=== PATIENT | female | born 2000 | race Caucasian/White ===

== ENCOUNTER 2022-07-08 17:37 | Outpatient (REF) | payer BC, SELFPAY ==
[2022-07-08 16:34] LABS: *AMPHETAMINES SCREEN URINE Negative (Negative); *BARBITURATES SCREEN URINE Negative (Negative); *BENZODIAZEPINES SCREEN URINE Negative (Negative); Cannabinoids THC Negative (Negative); Cocaine Screen,Urine Negative (Negative); METHADONE URINE SCREEN Negative (Negative); OPIATES URINE SCREEN Negative (Negative)
[2022-07-08 16:36] LABS: Tricyclic Antidepressants Negative (Negative)
[2022-07-18 16:20] LABS: Buprenorphine Negative ng/mL (Cutoff: 5.0); Norbuprenorphine Negative ng/mL (Cutoff: 2.5)
== END 2022-07-08 17:38 | disposition home or self-care (01) ==
LOC: LBN 17:37
PROVIDERS: Visit Provider Obstetrics & Gynecology
DX: Z34.93 Encounter for supervision of normal pregnancy, unspecified, third trimester (principal); Z3A.34 34 weeks gestation of pregnancy
CPT/HCPCS: 80307; 80348

== ENCOUNTER 2022-07-13 03:19 | Outpatient (CLI) | payer BC, SELFPAY ==
[2022-07-13 12:35] LABS: Abs Immature Grans 0.89 10^3/uL (0.0-0.06); Absolute Eosinophil Count 0.18 10^3/uL (0.0-0.7); Absolute Lymphocyte Count 2.44 10^3/uL (1.2-3.4); Absolute Monocyte Count 1.32 10^3/uL (0.1-0.8); Basophils % 0.5; Eosinophils % 0.9; HGB 8.4 g/dL (11.2-15.7); Immature Grans % 4.4; Lymphocytes % 12.2; MCH 24.8 pg (27.0-33.0); MCHC 31.1 % (32.0-36.0); MCV 80 fL (80-95); MPV 9.4 fL (8.0-11.0); Monocytes % 6.6; Neutrophils % 75.4; Nucleated RBC 0.3 % (0.0-0.3); Platelet Count 333 10^3/uL (130-400); RBC 3.39 10^6/uL (3.93-5.22); RDW 14.5 % (11.7-14.6); RDW-SD 41.7 fL; WBC 20.02 10^3/uL (4.4-10.8)
[2022-07-13 12:52] LABS: Diff Comment Diff Reviewed; RBC Morphology Normal
[2022-07-13 13:14] LABS: Glucose,1 Hr (Glucola) 142 mg/dL (80-140)
[2022-07-14 10:07] LABS: Hepatitis B Surface Ag Negative (Negative)
[2022-07-14 10:42] LABS: Hepatitis C Ab w Rflx HCV PCR Negative (Negative)
[2022-07-14 10:51] LABS: HIV-1/2 Ag & Ab Screen Negative (Negative)
[2022-07-14 10:54] LABS: Rubella IgG Ab (UVM) Equivocal (See Note)
[2022-07-15 13:18] LABS: Syphilis IgG w/Reflex Nonreactive (Nonreactive)
== END 2022-07-13 03:20 | disposition home or self-care (01) ==
LOC: LBO 03:19
PROVIDERS: Advanced Practice Midwife; Visit Provider Obstetrics & Gynecology
DX: Z34.91 Encounter for supervision of normal pregnancy, unspecified, first trimester
CPT/HCPCS: 36415; 82950; 86803; 86850; 86900; 86901; 87340; 87389; 85025; 86762; 86780; 86787

== ENCOUNTER 2022-07-17 01:35 | Outpatient (CLI) | payer BC, SELFPAY ==
--- OUTSIDE RECORDS SUMMARY | 2022-07-17 01:24 | XMS_ITS ---
:2000 Author Organization [facility] Address [address] [place] [address] Care Team Providers Name Role Phone Neelam Polo Unavailable Unavailable PROBLEMS Type Condition ICD9-CM Code MSE23-CO Code Onset Condition SNO MED Code Dates Status Problem Depression F32.9 Aug, Active 914298180 2019 Problem Asthma, exercise J45.990 Active 313 28368 induced Problem control Z30.9 Active [id number] 04 ALLERGIES Substance Reaction Event Type Date Status Amoxicillin rash Drug Allergy Jun, Active ENCOUNTERS Encounter Location Date Diagnosis [facility] [address] [facility] Jun, Bir th control Z30.9 [place] [address] Depression F 32.9 [facility] Feb, [place] [address] [facility] Oct, [place] [address] ADMINISTRATION [facility] Oct, [place] [address] [facility] [address] [facility] Sep, [place] [address] [facility] Sep, [place], [place] [address] J45.990 and Depression F32.9 [facility] Aug, [place] [address] Z00.00 ; Enc ounter for drug screening Z 02.83 ; Alcohol screenin g Z13.89 ; control Z30.9 ; Depression F32.9 and Acid reflux K21.9 [facility] [address] [facility] Jul, [place] [address] vaccination Z23 and Pre-employment examination Z02. 1 LPO-SPECIALTY TEAM [facility] November, [place] [address] xxADMIT,COMMUNICATIONS [facility] November, [place] [address] zzLPO-PRIM and PSYCH [facility] November, [place] [address] episode of m ajor depressive disor barbara F32.0 LPO-SPECIALTY TEAM [facility] Oct, [place] [address] zzLPO-PRIM and PSYCH [facility] Oct, [place] [address] episode of m ajor depressive disor barbara F32.0 zzLPO-PRIM and PSYCH [facility] Oct, [place] [address] F43.21 [facility] [address] [place] [address] Apr, [place] [address] zzLPO-PRIM and PSYCH [facility] Apr, [place] [address] zzLPO-PRIM and PSYCH [facility] Mar, Acid refl ux K21.9 ; [place] [address] Fatigue R53. 83 and Stress F43.9 zzLPO-PRIM and PSYCH [facility] Jan, [place] [address] health check Z00.129 ; Encounter for dr ug screening Z02.83 ; Encounter for immunization Z23 and Alcohol screenin g Z13.89 [facility] [address] [place] [address] Dec, [place] [address] [facility] [address] [place] [address] Jul, [place] [address] [facility] [address] [place] [address] Sep, [place] [address] [facility] [address] [place] [address] Sep, Enlarged ly mph node 785.6 [place] [address] and FATIGUE 780.79 [facility] [address] [place] [address] Sep, Enlar ged lymph node 785.6 [place] [address] and FATIGUE 7 80.79 [facility] [address] [place] [address] Apr, Well baby/ [place] [address] V20.2 ; VACCI N FOR INFLUENZA V04.81 and HPV-NOT GIVEN-CA REGIVER REFUSES V64.05 [facility] [address] [place] [address] Apr, [place] [address] [place] [address] Mar, [place] [address] [place] [address] November, [place] [address] CASE MANAGEMENT [facility] Aug, [place] [address] [facility] Apr, Well baby/ [place] [address] V20.2 and MEN INGOCOCCAL VACCINE V03.89 [facility] 11 May, 2010 VACCIN FOR INFLUENZA OFFICE 1 [place] V04.81 [address] [facility] Mar, [place] [address] [facility] Mar, EXERC [place] [address] 493.81 CASE MANAGEMENT [facility] Feb, [place] [address] [facility] 18 Aug, 2009 Cough 786.2 OFFICE 1 [place] [address] [facility] 15 Dec, 2008 Acute URI [upper OFFICE 1 [place] [address] multiple sites 4 65.8 [facility] November, Pneumo wendy NOS 486 OFFICE 1 [place] [address] ADMINISTRATION [facility] Sep, [place] [address] [facility] 17 Sep, 2008 Well b adarsh/ child exam OFFICE 1 [place] V20.2 ; [facility] [place] [facility] [address] V06.1 and Abdomi nal pain, generalized 789. 07 [facility] Jul, [place] [address] [facility] Jul, [place] [address] [facility] [address] [place] [address] Jul, Abdom inal pain, [place] [address] generalized 7 89.07 [facility] Jun, Acu te URI [[place] [address] respiratory infection] of multiple sites 4 65.8 [facility] [address] [facility] Jun, [place] [address] [facility] May, [place] [address] [facility] [address] [facility] Dec, [place] [address] [facility] [address] [facility] November, Pha ryngitis NOS [address] [place] [address] [facility] [address] [facility] November, [place] [address] UNKNOWN November, [facility] [address] [facility] Aug, [place] [address] UNKNOWN 08 Aug, 2006 [facility] [address] 18 Jun, 2006 [place] [address] V04.81 and V ARICELLA VACCINATION V05. 4 UNKNOWN May, [facility] [address] 07 May, [address] INFECTION 112.1 and [place] [address] PREOP EXAM U [facility] V72.84 [facility] [address] 05 Apr, 2006 Enu resis 307.6 ; [place] [address] DERMATITIS 6 92.9 ; Upper respiratory infe ction NOS 465.9 and Mollus cum contagiosum 078. 0 [facility] [address] 16 Feb, 2006 [place] [address] UNKNOWN Feb, [facility] [address] 21 Jan, 2006 [place] [address] [facility] [address] 29 Dec, 2005 [place] [address] 078.0 ORTHOPEDIC OFFICE [address] 23 Dec, 2005 [place] [address] [facility] [address] 21 Dec, 2005 [place] [address] [facility] [address] 16 Dec, 2005 [place] [address] [facility] [address] 08 Dec, 2005 [place] [address] ORTHOPEDIC OFFICE [address] 02 Dec, 2005 [place] [address] [facility] [address] 30 Nov, 2005 [place] [address] [facility] [address] 14 Oct, 2005 [place] [address] [facility] [address] 27 Sep, 2005 [place] [address] [facility] [address] 27 Sep, 2005 [place] [address] [facility] [address] 15 Sep, 2003 [place] [address] [facility] [address] 16 Dec, 2002 [place] [address] IMMUNIZATIONS Vaccine Route Administration Date Status polio HISTORY Unknown 1998 Administered polio HISTORY Unknown January 21, 1999 Administered polio HISTORY Unknown November 25, 1999 Administered polio HISTORY Unknown December 18, 2002 Administered DTaP,HISTORY Unknown January 21, 1999 Administered DTaP,HISTORY Unknown May 19, 1999 Administered DTaP,HISTORY Unknown Apr 19, 2000 Administered DTaP,HISTORY Unknown December 18, 2002 Administered -Influenza split STATE preser Unknown May 09, 2009 Ad ministered free>35mos (46010) Hep B HISTORY adolescent or Unknown 1998 Admi nistered pediatric Hep B HISTORY adolescent or Unknown 1998 Admi nistered pediatric Influenza HISTORY Unknown Mar 26, 2011 Administered Hep B HISTORY adolescent or Unknown May 22, 1999 Admi nistered pediatric Tdap STATE Boostrix 7yrs or older Unknown September 18, 2008 Administered of age [address] Varicella STATE Unknown Jun 21, 2006 Administered [place] includes admin [id number] ID Intradermal Jul 11, 2018 Adm inistered Meningococcal STATE(Menactra) 43382 IM Intramuscular Apr 28 1 Administered zzInfluenza FLUMIST QUAD STATE 2yr NS Nasal May 02, 2014 Administered thru 18yrs -N.CL,NonState Unknown Jun 21, 2006 Administered Intranasal,>18yrs,single vaccine(94966) Hib HISTORY Unknown 1998 Administered Hib HISTORY Unknown January 21, 1999 Administered Hib HISTORY Unknown May 22, 1999 Administered Hib HISTORY Unknown Apr 19, 2000 Administered Chickenpox had disease Unknown November 29, 2000 Administe red -Influenza Flulaval NON-STATE w IM Intramuscular May 15, 2010 Administered preservative Meningococcal STATE(Menveo) IM Intramuscular January 13, 2016 Adm inistered MMR HISTORY Unknown November 25, 1999 Administered MMR HISTORY Unknown December 18, 2002 Administered DTaP,HISTORY Unknown 1998 Administered SOCIAL HISTORY Qualifiers Date Current Smoker 07/11/2018 REASON FOR REFERRAL FUNCTIONAL STATUS PLAN OF CARE Activity Details Follow Up 4 Weeks Reason:deprssion Future Test UA-Urine ,IN OFFICE [id number] VITAL SIGNS Height 60.25 in 2019-06-15 Height 60.25 in 2018-09-13 Height 60.25 in 2018-08-05 Height 59 in 2018-07-11 Height 59 in 2016-03-26 Height 59 in 2016-01-13 Height 59 in 2014-09-18 Height 59 in 2014-05-02 Height 59 in 2011-04-28 Height 57.25 in 2010-03-12 Height 55 in 2009-08-22 Height 53.25 in 2008-09-18 Height N/A in 2005-09-28 Height N/A in 2003-09-17 Height N/A in 2002-12-18 Weight 98.6 lbs 2019-06-15 Weight 99.2 lbs 2018-09-13 Weight 97.6 lbs 2018-08-05 Weight 84.5 lbs 2018-07-11 Weight 91.2 lbs 2016-03-26 Weight 96.4 lbs 2016-01-13 Weight 94.2 lbs 2014-09-18 Weight 92.0 lbs 2014-05-02 Weight 86 lbs 2011-04-28 Weight 78 lbs 2010-03-12 Weight 74.4 lbs 2009-08-22 Weight 63 lbs 2008-12-17 Weight 60 lbs 2008-11-20 Weight 61 lbs 2008-09-18 Weight 61 lbs 2008-07-25 Weight N/A lbs 2008-06-19 Weight N/A lbs 2007-12-02 Weight N/A lbs 2006-05-11 Weight N/A lbs 2006-04-08 Weight N/A lbs 2005-12-31 Weight N/A lbs 2005-09-28 Weight N/A lbs 2003-09-17 Weight N/A lbs 2002-12-18 BMI 19.09 kg/m2 2019-06-15 BMI 19.21 kg/m2 2018-09-13 BMI 18.90 kg/m2 2018-08-05 BMI 17.07 kg/m2 2018-07-11 BMI 18.42 kg/m2 2016-03-26 BMI 19.47 kg/m2 2016-01-13 BMI 19.02 kg/m2 2014-09-18 BMI 18.58 kg/m2 2014-05-02 BMI 17.37 kg/m2 2011-04-28 BMI 16.73 kg/m2 2010-03-12 BMI 17.29 kg/m2 2009-08-22 BMI 15.12 kg/m2 2008-09-18 BMI N/A kg/m2 2005-09-28 BMI N/A kg/m2 2003-09-17 BMI N/A kg/m2 2002-12-18 Temperature 98.3 degrees Fahrenheit 2019-06-15 Temperature 98.6 degrees Fahrenheit 2018-09-13 Temperature 98.5 degrees Fahrenheit 2018-08-05 Temperature 98.8 degrees Fahrenheit 2018-07-11 Temperature 98.5 degrees Fahrenheit 2016-03-26 Temperature 97.4 degrees Fahrenheit 2016-01-13 Temperature 99.3 degrees Fahrenheit 2014-09-18 Temperature 99.4 degrees Fahrenheit 2014-05-02 Temperature TYMPANIC:98.6 degrees Fahrenheit 2011-04 Temperature 98.9 degrees Fahrenheit 2010-03-12 Temperature 95.3 degrees Fahrenheit 2009-08-22 Temperature 97.3 degrees Fahrenheit 2008-12-17 Temperature 96.8 degrees Fahrenheit 2008-11-20 Temperature 97.6 degrees Fahrenheit 2008-09-18 Temperature 96.8 degrees Fahrenheit 2008-07-25 Temperature N/A degrees Fahrenheit 2008-06-19 Temperature N/A degrees Fahrenheit 2007-12-02 Temperature N/A degrees Fahrenheit 2006-06-21 Temperature N/A degrees Fahrenheit 2006-05-11 Temperature N/A degrees Fahrenheit 2006-04-08 Temperature N/A degrees Fahrenheit 2005-12-31 Heart Rate 100 /min 2019-06-15 Heart Rate 84 /min 2018-09-13 Heart Rate 89 /min 2018-08-05 Heart Rate 112 /min 2018-07-11 Heart Rate 98 /min 2016-03-26 Heart Rate 109 /min 2016-01-13 Heart Rate 88 /min 2014-09-18 Heart Rate 118 /min 2014-05-02 Heart Rate 115 /min 2011-04-28 Heart Rate 100 /min 2010-03-12 Heart Rate 117 /min 2009-08-22 Heart Rate 99 /min 2008-12-17 Heart Rate 102 /min 2008-11-20 Heart Rate 108 /min 2008-09-18 Heart Rate 102 /min 2008-07-25 Heart Rate N/A /min 2008-06-19 Heart Rate N/A /min 2007-12-02 Heart Rate N/A /min 2006-05-11 Heart Rate N/A /min 2006-04-08 Heart Rate N/A /min 2005-12-31 Respiratory Rate 16 /min 2019-06-15 Respiratory Rate 18 /min 2018-09-13 Respiratory Rate 18 /min 2018-08-05 Respiratory Rate 18 /min 2018-07-11 Respiratory Rate 16 /min 2016-03-26 Respiratory Rate 18 /min 2016-01-13 Respiratory Rate 16 /min 2014-09-18 Respiratory Rate 16 /min 2014-05-02 Respiratory Rate 16 /min 2011-04-28 Respiratory Rate 20 /min 2010-03-12 Respiratory Rate 18 /min 2009-08-22 Respiratory Rate 20 /min 2008-12-17 Respiratory Rate 20 /min 2008-11-20 Respiratory Rate 20 /min 2008-07-25 Respiratory Rate N/A /min 2006-05-11 Oximetry 100 % 2019-06-15 Oximetry 99 % 2018-09-13 Oximetry 98 % 2018-08-05 Oximetry 98 % 2018-07-11 Oximetry 98 % 2016-03-26 Oximetry 100 % 2016-01-13 Oximetry 100 % 2014-09-18 Oximetry 98 % 2014-05-02 Oximetry 99 % 2011-04-28 Oximetry 98% % 2010-03-12 Oximetry 99 % 2009-08-22 Oximetry 98% % 2008-12-17 Oximetry 95 % % 2008-11-20 Oximetry 98 % 2008-09-18 Oximetry 100% % 2008-07-25 Blood pressure systolic 110 mm Hg 2019-06-15 Blood pressure diastolic 73 mm Hg 2019-06-15 MEDICATIONS Medication Instructions Dosage Frequency Start End Duration Statu s Date Date ProAir HFA 108 Inhalation every 2 puffs as 6h Sep, da ys Active (90 Base) 6 hrs needed 2018 MCG/ACT Norgestimate-E Orally once a 1 tablet 24h 90 days Ac tive th Estradiol day 0.25-35 MG-MCG FLUoxetine HCl Orally Once a 1 capsule 24h Jun, day(s) Active 10 MG day 2018 Lexapro 5 MG Orally Once a 1 tablet 24h Sep, day(s) No t-Takin day 2018 g 24h Active PROCEDURES Procedure Date Ordered Result Body Site N.,[facility] inj.fee,add.inj.(20230) Jun 21, 2006 No HTN DX,BP <120/80 (87483) Aug 05, 2018 -zzSTATE,inj.fee,(Single or combination) September 18, 2008 N.CL,INJ.FEE.MEDICARE-INFLUENZA(09621) May 15, 2010 No HTN DX,BP <120/80 (38083) Mar 26, 2016 Varicella STATE Jun 21, 2006 N.,STATE inj.fee,(Single or Combination)(41387) Apr 28, 2011 Med Rec done (39129) Aug 05, 2018 N.,STATE inj.fee,(Single or Combination)(11787) January 13, 2016 Med Rec done (82939) Jun 15, 2019 SBIRT screen w intervention (53536) January 13, 2016 SBIRT SCREEN negative January 13, 2016 BMI normal (64080) January 13, 2016 EVAL,PSYCH DIAGNOSTIC October 12, 2016 BMI normal (36535) September 13, 2018 Tob non-user (70630) January 13, 2016 Med Rec done (86553) September 13, 2018 -N.CL,NonState Intranasal,>18yrs,single Jun 21, 2006 vaccine(62416) Tdap STATE Boostrix 7yrs or older of age [address] September 18, 2008 MENINGOCOCCAL VACCINE, IM January 13, 2016 -Influenza Flulaval NON-STATE w preservative May 15, 2010 SBIRT screening 2016-01-13 negative SBIRT screening 2018-08-05 Negative N.CL,STATE inj.fee,(Single or Combination)(01887) Jun 21, 2006 No HTN DX,BP <120/80 (02926) January 13, 2016 Dep screen neg (51594) January 13, 2016 Med Rec done (75259) January 13, 2016 No HTN DX,BP <120/80 (10408) Jun 15, 2019 SBIRT SCREEN negative Aug 05, 2018 zzInfluenza FLUMIST QUAD STATE 2yr thru 18yrs May 02, 2014 Tob user, counseled (89845) Aug 05, 2018 Meningococcal STATE(Menactra) 66872 Apr 28, 2011 Tob non-user (29724) Mar 26, 2016 PSYTX PT&/FAMILY 30 MINUTES (74909) November 06, 2016 Dep screen neg (28426) Mar 26, 2016 [place] includes admin 78208 Jul 11, 2018 Med Rec done (13761) Mar 26, 2016 BMI normal (82893) Jun 15, 2019 N.CL,STATE inj.fee,(Single or Combination)(13461) May 02, 2014 BMI normal (67731) Mar 26, 2016 UA- TEST (g code 19926) Jun 15, 2019 RESULTS Name Result Date Reference Range UA-Urine ,IN OFFICE 2019-06-15 RESULT Neg UA-Urine ,IN OFFICE 2018-08-05 RESULT Neg X Abdomen 1 V 2017-08-12 See Below For Report LIPASE 2017-08-12 LIP [phone] UA-Urine ,AT HOSPITAL 2017-08-12 HCG-U NEGATIVE NEGATIVE COMPMET 2017-08-12 GLUC 94 74-103 BUN 21 7-18 CREATS 0.86 0.55-1.30 EGFR >60 >=60 NA 140 136-145 K+ 4.0 3.7-5.0 CL 103 99-109 CO2 26 22-32 CA 8.8 8.5-10.1 TP 7.3 6.3-8.6 ALB 4.1 3.7-5.6 TBIL 0.3 0.0-1.0 DBIL 0.1 0.0-0.1 ALKP 98 46-116 AST 31 15-37 ALT 43 13-78 CBC WITH AUTO DIFF 2017-08-12 WBC 7.3 4.0-12.0 RBC 4.5 4.5-6.0 HGB 12.8 12.5-16.0 HCT 39.4 37.0-47.0 MCV 87 78-100 MCH 28.3 27.0-32.0 MCHC 32.5 32.0-36.0 RDW 13.1 11.0-14.0 PLT 222 140-440 MPV 10.7 7.4-11.0 ANC# 4.1 1.4-7.9 IG# 0.0 0.0-0.1 LY# 2.0 1.5-4.0 MO# 0.9 0.2-0.8 EO# 0.3 0.0-0.7 BA# 0.1 0.0-0.2 NE% 55.6 IG% 0.1 0.0-1.0 LY% 26.7 MO% 12.4 EO% 4.6 BA% 0.7 UA-DIP W/REFLEX 2017-08-12 COL Yellow YELLOW CLARITY Clear CLEAR SG 1.020 1.001-1.035 GLU. Negative NEGATIVE GUIDO Negative NEGATIVE KET Negative NEGATIVE BLD Negative NEGATIVE PH 7.5 5.0-8.0 PROT Negative NEGATIVE NIT Negative NEGATIVE BROCK Negative NEGATIVE MONOSPOT 2014-09-18 MONOSPOT NEGATIVE NEGATIVE CBC WITH AUTO DIFF 2014-09-18 WBC 9.9 4.5-15.5 RBC 4.4 3.5-6.0 HGB 12.8 11.5-15.5 HCT 38.2 35.0-45.0 MCV 87 77-100 MCH 29.2 25.0-35.0 MCHC 33.5 31.0-37.0 RDW 12.3 11.0-14.0 PLT 278 150-450 MPV 11.1 7.4-11.0 NE% 69.8 42.2-75.2 LY% 22.6 20.5-51.0 MO% 6.6 1.7-9.3 EO% 0.7 0.0-6.0 BA% 0.3 0.0-1.0 ANC 6.9 1.4-7.9 EKG-NON WEEKS 2012-08-08 UA-COLONY COUNT ONLY COLONY COUNT To Micro ANTIBIOTIC: Day1 Day 2 Isolate1 SOURCE: UA-COLONY COUNT ONLY UA DIPSTICK ONLY-DIAGNOSTIC Color yellow Clarity Specific Burt >1.030 Glucose. neg Bilirubin neg Ketones tr Blood neg PH 7.0 Protein tr Urobilinogen 0.2 Nitrite neg Leukocytes tr RAPID STREP SCREEN,IN OFFICE (2 Swab System) Result To Micro RAPID STREP SCREEN,IN OFFICE (2 Swab System) Result To Micro UA-DIP W/REFLEX SOURCE BILIRUBIN NEG BLOOD NEG CLARITY CLEAR COLOR YELLOW GLUCOSE NEG KETONES NEG LEUKOCYTES NEG NITRITES NEG PH 9.0 PROTEIN TRACE SPECIFIC GRAVITY 1.015 UROBILINOGEN 0.2 UROBILINOGEN UA-COLONY COUNT ONLY COLONY COUNT To Micro ANTIBIOTIC: Day1 Day 2 Isolate1 SOURCE: UA-DIP W/REFLEX SOURCE BILIRUBIN NEG BLOOD NEG CLARITY Clear COLOR Yellow GLUCOSE NEG KETONES NEG LEUKOCYTES NEG NITRITES NEG PH 7.0 PROTEIN NEG SPECIFIC GRAVITY 1.025 UROBILINOGEN 0.2 UROBILINOGEN UA-DIP W/REFLEX SOURCE BILIRUBIN NEG BLOOD NEG CLARITY Clear COLOR Yellow GLUCOSE NEG KETONES NEG LEUKOCYTES NEG NITRITES NEG PH 8.5 PROTEIN 30 SPECIFIC GRAVITY 1.015 UROBILINOGEN 0.2 UROBILINOGEN UA-DIP W/REFLEX SOURCE BILIRUBIN NEG BLOOD NEG CLARITY Clear COLOR Yellow GLUCOSE NEG KETONES NEG LEUKOCYTES NEG NITRITES NEG PH 8.0 PROTEIN NEG SPECIFIC GRAVITY 1.015 UROBILINOGEN 0.2 UROBILINOGEN UA-COLONY COUNT ONLY COLONY COUNT To Micro ANTIBIOTIC: Day1 Day 2 Isolate1 SOURCE: UA-DIP W/REFLEX SOURCE BILIRUBIN NEG BLOOD NEG CLARITY Clear COLOR Yellow GLUCOSE NEG KETONES NEG LEUKOCYTES NEG NITRITES NEG PH 6.5 PROTEIN NEG SPECIFIC GRAVITY 1.025 UROBILINOGEN 0.2 UROBILINOGEN PT/INR PT 11.3 INR PT-INR 0.95 PT-INR Interp Goal INR range GOAL INR RANGE TABLET SIZE AVG.QD DOSE NEW AVG.QD DOSE NEXT INR DUE REASON FOR VISIT CPE, CPE roomer template, , Pap smear? Pt has never had one before, discuss BC , discuss BC , flu shot- pt would like to talk to provider about., Meds reviewed by pt,no longer taking: lexapro, [id number] (Pt would like to go back on), No medication refills needed at this time., refill BCP, Correcting allergies, Please call, 1 month f/u, needs note , med f/u, patient does not have any questions or concerns , patient wants refill of inhalor, does not know name, is interested in gettinga different inhalor, sent to RA in [place], [facility], NEW PCP, SBIRT, pt states she has no concerns at this time, Medications reviewed w/pt,med. 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 Medications managed by prescribing provider, r/s today's appt with Sharonda, f/u--patient r/s 10/27, f/u, situational depression, Medications listed below as unknown were not reviewed with patient. Medications managed by prescribing provider, referral for counseling , Flu shot , school excuse note, school note, indigestion , check iron level, feels tired lately, WCC, change multivitamin, pt due for meningococcal #2, custom to multum, Overdue for WCC , pt not feeling any better, lump behind neck, Med Rec to be done by ALY -zane, [facility]/new PCP, New PCP, [facility] flu shot. 15-18 year ck-female. , cholesterol, see preventative medicine, Medications reviewed w/pt,med. list is correct-tb, HPV. PT REQUESTING FLU SHOT TODAY, Flu Shot,VV, no response to letter inactive, check heart rate--mother requested date, Appt with BS, [facility], Medsreviewed, no longer taking: multivitamin -, Mother states to she would like Summer spine checked out, ?anemia / pt mom cancelled due to flooding, Flu Shot, flu shot, 6 WK FU SOB--mother cancelled 04/22, PA-XOPENEX HFA, SOB w/ activities - Pt has pain in the right rib area, when she is running etc, Pt's younger brother has asthma and she tried his inhaler and it helped her breathing, Meds reviewed, no longer taking: zithromax, prednisone, Pt only takes a daily multivitamin - per Mom - slc, Mom states that pt had asthma when she was younger, and she had no symptoms until she started puberty., periods, appt with BS 02/21, strange periods lasting for 9 days for the past 3 months / discuss Guardasil shot--mother cancelled no ride 02/06, cough, female issues, cough f/u, COUGH WENT AWAY BUT HAS STARTED WITH ANOTHER COLD, cough, chest hurts, COUGH AND FEVER, for 3 days and chest hurt after coughing this am, Needs note, 8 yr wcc/chicken pox shot, 8 yr wc - mother r/s, strep? - mother r/s, Review PA note, note for school, stomach aches, lips look white and face looks pale, pt states stomach hurts in belly button area and back, mom said this problem has been going on for about a year., fever, aches, vomiting comes and goes, Exposure to scabies, stomach issues, upset stomach that comes & goes, wcc, strep results, sore throat, not feeling well, problems going to bathroom, ? bipolar or depression, FYI only, FLU SHOT, PREOP PE, having her arm reset in [facility] on the , PRE OP PE FOR ARM TO BE RESET, ITCHING IN PRIVATE AREA, COLD SX X 1 WEEK - COUGH WORSE, FYI Hammer appt, PLEASE MAKE APPT. TO KATT/DR. EVANS MADE REFERAL, to discuss up-coming surgery on arm, spots under eye and under chin, spots under eye, Message, Message, f/u wrist fx, Message, FOLLOW UP SURGERY, Needs call back from office, SORE THROAT, follow up, ?UIT, [facility] Insurance Providers [facility] Health Member Patient Patient Patient Patient Patient Subscriber Subscriber Subscriber Group Insurance Plan Plan Plan Plan ID Relationship Address Phone Name Date of ID Name Date of No Type Insurance Insurance Insurance Coverage to Subscriber Address Phone Name Dates SELF PAY ANY STREET SELF PAY [place] [address] INSURANCE S-MEDICAID EDS [id number] S-MEDICAID self SUMMER [id number] [place] [id number] SELF PAY self SUMMER 1998 AFTER [place] [id number] CROSS BLUE CROSS [address] BLUE CROSS SUMMER 315 [id number] [facility] [address] SELF [place]Y [place] [id number] INSURANCE MEDICAID XER[place] MEDICAID self SUMMER [id number] CLAIMS [place] [facility] [phone] SELF PAY [place] [id number] INSURANCE S-MEDICAID EDS [id number] S-MEDICAID self SUMMER [id number] [facility] & HEALTH SERVICES [address] [place] [address] MEDICAID XEROS MEDICAID self summer15 [id number] [place] [facility] [phone] SELF PAY self summer AFTER [place] [address] CROSS BLUE CROSS [address] BLUE CROSS summer [id number] [place] [address] OCCUPATION [facility] ATTN OCCUPATION self SUMMER 1998 5 [id number] [facility] LEANN 8 [facility] [address] S-MEDICAID EDS [id number] S-MEDICAID self SUMMER [id number] [place] [address] WELL SENSE ATTN WELL SENSE self [id number] CLAIMS [facility] [address] S-WELL ATTN: S-WELL self summer15 [id number] SENSE CLAIMS SENSE [facility] GENERAL [address] GENERAL [id number] INSURANCE 2000 [employer] [place] [id number]
--- OUTSIDE RECORDS SUMMARY | 2022-07-17 01:24 | XMS_ITS ---
:2000 Author Organization [facility] Address [address], [place] [address] Care Team Providers Name Role Phone Anushka Eduardo Unavailable Unavailable PROBLEMS Type Condition ICD9-CM Code NJO84-[id number] Code Onset Condition SNO MED Code Dates Status Problem Other specified N92.5 Active 8018 2006 irregular menstruation ALLERGIES Substance Reaction Event Type Date Status Kiwi mouth numbness/tingling Drug Allergy Feb, Acti ve Apple (Diagnostic) diarrhea/stomach pain Drug Allergy Feb, Active Amoxicillin hives Drug Allergy Feb, Active ENCOUNTERS Encounter Location Date Diagnosis [address] Mar, [facility] [address] [id number] [address] Feb, Encounter for supervision [place] [address] of other normal , [place], [place] second trimester Z34.[id number] Feb, [address] [id number] [address] Jan, Encounter for supervision [place] [address] of other normal , [place], [place] first trimester Z34.81 ; [id number] Cervical cancer screening Z12.[address] for screening examin ation for sexually transmi tted disease Z11.[address] Jan, 7 weeks g estation of [facility] [address] Z3A.01 [place], [place] [id number] [address] Dec, Other spe cified irregular [facility] 31 menstruation N92 .5 and [place], [place] Encounter for pr egnancy [id number] test, result pos itive Z32.[address] 13 Dec, [address] [id number] [facility] [address] 18 Oct, 2021 Open wou nd of left thumb, [place], [place] initial encou nter S61.002A [id number] [facility] [address] Apr, Dysuria R30.0 and Urinary [place], [place] tract infecti on without [id number] hematuria, site unspecified N39. [address] November, [address] [id number] [address] 03 Nov, 2020 Sprain of l eft ankle, [facility] Occupational [place] unspe cified ligament, [facility] Department [id number] sequela S93.[address] 24 Oct, 2020 Sprain of o ther ligament [facility] [place], [place] of le ft ankle, subsequent Health Department [id number] encounter S93. 492D [address] 14 Oct, 2020 Acute left ankle pain [facility] Occupational [place], [place] M25.5 72 and Sprain of left Health Department [id number] ankle, unspeci fied ligament, initia l encounter S93.[address] Jul, Encounter f or other [place], [place] admin istrative [facility] [id number] examinations Z 02.[address] Jul, Physical ex am, Healthcare Occupational [place] pre-e mployment Z02.1 Health Department [id number] IMMUNIZATIONS No Known Immunizations SOCIAL HISTORY Qualifiers Date Current Smoker REASON FOR REFERRAL FUNCTIONAL STATUS PLAN OF CARE Activity Details Follow Up 4-5 weeks Reason: Future Test US OB GREATER THAN 14 WEEKS 20220224 Future Test CBC, WITH AUTO DIFF 20220126 Future Test HEPATITIS B SURFACE ANTIGEN, 20220126 Future Test HIV12P 20220126 Future Test RUBELLA IGG ANTIBODY PRENATA L 20220126 Future Test SYPHILIS, 20220126 Future Test TYPE AND SCREEN, 22060809 Future Test CULTURE URINE 20220126 Pending Test URINE DIP ([facility]) VITAL SIGNS Height 59 in 2022-02-24 Height 59 in 2022-01-26 Height 59 in 2022-01-02 Height 59 in 2021-12-18 Height 59 in 2021-10-20 Height 59 in 2021-04-25 Height 59 in 2020-11-04 Height 59 in 2020-10-26 Height 59 in 2020-10-16 Height 59 in 2020-07-25 Weight 102.8 lbs 2022-02-24 Weight 95.4 lbs 2022-01-26 Weight 93.4 lbs 2022-01-02 Weight 97.0 lbs 2021-12-18 Weight 110 lbs 2020-10-26 Weight 110 lbs 2020-10-16 Weight 108 lbs 2020-07-25 Temperature 98.0 degrees Fahrenheit 2021-04-25 Temperature 97.6 degrees Fahrenheit 2020-11-04 Temperature 98.2 degrees Fahrenheit 2020-10-26 Temperature 97.3 degrees Fahrenheit 2020-10-16 Heart Rate 107 /min 2021-10-20 Heart Rate 118 /min 2021-04-25 Heart Rate 78 /min 2020-11-04 Heart Rate 71 /min 2020-10-26 Heart Rate 84 /min 2020-10-16 Oximetry 100 2021-10-20 Oximetry 99 2021-04-25 Oximetry 99 2020-11-04 Oximetry 99 2020-10-26 Oximetry 99 2020-10-16 Respiratory Rate 12 /min 2021-04-25 Respiratory Rate 12 /min 2020-11-04 Respiratory Rate 16 /min 2020-10-26 Respiratory Rate 12 /min 2020-10-16 BMI 20.763 kg/m2 2022-02-24 BMI 19.268 kg/m2 2022-01-26 BMI 18.86 kg/m2 2022-01-02 BMI 19.59 kg/m2 2021-12-18 BMI 22.21 kg/m2 2020-10-26 BMI 22.21 kg/m2 2020-10-16 BMI 21.81 kg/m2 2020-07-25 Blood pressure systolic 100 mm Hg 2022-02-24 Blood pressure diastolic 68 mm Hg 2022-02-24 MEDICATIONS Medication Instructions Dosage Frequency Start Date End Date Duration S tatus (w/Iron Orally QD 1 tablet 24h Acti ve & FA) 27-0.8 MG PROCEDURES Procedure Date Ordered Result Body Site OCD Urine Drug Screen (collection only) Jul 25, 2020 SUBSEQUENT CARE Feb 24, 2022 URINE TEST December 18, 2021 JAMEY - URINALYSIS NONAUTO W/O SCOPE Apr 25, 2021 SUBSEQUENT CARE January 26, 2022 26 REPAIR SIMPLE <=2.5CM October 20, 2021 INITIAL CARE VISIT January 26, 2022 SUBSEQUENT CARE Mar 31, 2022 JAMEY - URINE TEST Apr 25, 2021 RESULTS Name Result Date Reference Range URINE DIP ([facility]) 2022-02-24 Color Clarity Glucose negative Bilirubin Ketones Specific [place] Blood PH Protein negative Uro Nitrates Leukocytes CBC, WITH AUTO DIFF 2022-01-26 WBC 14.6 4.8-10.8 RBC 4.12 4.20-5.40 HGB 12.4 12.0-16.0 HCT 36.2 37.0-47.0 MCV 87.9 81.0-99.0 MCH 30.1 27.0-31.0 MCHC 34.3 32.0-37.0 RDW-CV 13.0 11.5-14.5 PLT 227 130-400 MPV 10.1 7.4-10.4 NE% 82.3 42.2-75.2 LY% 12.1 20.5-51.1 EO% 0.4 0.9-2.9 BA% 0.3 0.0-0.8 NE# 12.0 1.4-6.5 LY# 1.8 1.2-3.4 MO# 0.7 0.1-0.6 EO# 0.1 0.0-0.2 BA# 0.0 0.0-0.2 HEPATITIS B SURFACE ANTIGEN, 2022-01-26 HEP B SURFACE AG NON-REACTIVE NON-REACTIVE HIV12P 2022-01-26 HIV1/O/2 Abs,P24Ag NON-REACTIVE NON-REACTIVE RUBELLA IGG ANTIBODY 2022-01-26 RUBELLA 34.8 >=10.0 RUB HEAD REFERENCE RANGE: (IU/mL) <5.0 : NON-IMMUNE 5.0 - 9.9 : MAS ZONE >= 10.0 : IMMUNE SYPHILIS, 2022-01-26 SYPHILIS NON-REACTIVE NON-REACTIVE TYPE AND SCREEN, 2022-01-26 ABORh O POSITIVE ANTIBODY SCREEN NEGATIVE NEGATIVE TS COMM Pre-op Type & Screen specimens are valid for 7 days. If the patient has been transfused or been within the past 3 months, the specimen is only valid for 3 days. CULTURE URINE 2022-01-26 Pap Lb, Ct-Ng, rfx HPV ASCU 2022-01-26 . Chlamydia, Nuc. Acid Amp Negative Gonococcus, Nuc. Acid Amp Negative Note: . Clinical history: DIAGNOSIS: Specimen adequacy: Additional comment: Recommendation: Performed by: Electronically signed by: Test ordered: Maturation index: Amended report: Addendum: QC reviewed by: Cytology history: Special procedure: QA comment: Diagnosis provided by: Source: Pathologist provided ICD9: Clinician provided ICD9: Interpretation LBP CPT Code Automation URINE DIP ([facility]) 2022-01-26 Color yellow Clarity clear Glucose negative Bilirubin negative Ketones negative Specific [place] 1.000 Blood negative PH 7 Protein negative Uro normal Nitrates negative Leukocytes negative MATERNI 21 PLUS W/ESS AND SCA 2022-01-26 ([id number]) DATE SENT 01/26/22 RESULT SEE SEPARATE REPORT INHERITEST CORE ([id number]) 2022-01-26 DATE SENT 01/26/22 RESULT SEE SEPARATE REPORT Test (Rapid) Urine 2021-12-18 Result positive Control Passed yes US OB LESS THAN 14 WEEKS 2022-01-02 CULTURE URINE 2021-04-25 JAMEY URINALYSIS DIP 2021-04-25 CLARITY CLEAR COLOR YELLOW NITRITES TRACE REDUCING SUBSTANCES SPECIFIC GRAVITY 1.000 UROBILINOGEN NEG BILIRUBIN NEG BLOOD LARGE GLUCOSE NEG KETONES NEG pH 7 PROTEIN NEG LEUKOCYTES LARGE JAMEY URINE 2021-04-25 Result NEG Control Passed POS XR ANKLE 3 VIEWS LEFT 2020-10-16 OCD URINE COLLECTION 2020-07-25 REASON FOR VISIT * pt called/RS NS OB US & appt here., OB follow up, OB follow up, OB follow up, 01/26 lab results, OB New OB, OB New OB, 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 Patient says she might have saw bone onthe wound. This occured within the hour and claims it was bleeding a lot when the incident occured. Patient says the wound is not painful , JAMEY back pain pelvic pain nausea urinating more often, questioning UTI, ,LMP 09/27, ? Infection, OCC wcf, OCC wcf, OCC wci, OCC udc, OCC udc , OCC pre-employ ppx, PUBLISHING EDITOR Insurance Providers [facility] Member Patient Patient Patient Patient Patient Subscriber Subscriber Subscriber Group Insurance Plan Plan Plan Plan ID Relationship Address Phone Name Date of ID Name Date of No Type Insurance Insurance Insurance Coverage to Subscriber Address Phone Name Dates [place] [phone] [place] self summer [id number] ATTN 45 [place] CLAIMS [facility] [id number] [place] [address] [place] self summer [id number] [facility] [address] OCD - PO [address] OCD - self summer [id number] ESCREEN [id number] ESCREEN [facility] [address] OCD - NSA [address] [facility] [phone] OCD - NSA self summer [id number] [facility] [address]
--- OUTSIDE RECORDS SUMMARY | 2022-07-17 01:37 | XMS_ITS ---
:2000 Author Organization [facility] Address [address] [place], [place] [address] Care Team Providers Name Role Phone Anushka Eduardo Unavailable Unavailable PROBLEMS Type Condition ICD9-CM Code CXF94-TD Code Onset Condition SNO MED Code Dates Status Problem Other specified N92.5 Active 8018 2006 irregular menstruation ALLERGIES Substance Reaction Event Type Date Status Kiwi mouth numbness/tingling Drug Allergy Feb, Acti ve Apple (Diagnostic) diarrhea/stomach pain Drug Allergy Feb, Active Amoxicillin hives Drug Allergy Feb, Active ENCOUNTERS Encounter Location Date Diagnosis [address] Mar, [facility] [address] [id number] [address] Feb, Encounter for supervision [place] [address] of other normal , [place], [place] second trimester Z34.[id number] Feb, [facility] [address] [id number] [address] Jan, Encounter for supervision [place] [address] of other normal , [place], [place] first trimester Z34.81 ; [id number] Cervical cancer screening Z12.[address] for screening examin ation for sexually transmi tted disease Z11.[address] Jan, 7 weeks g estation of [facility] [address] Z3A.01 [place], [place] [id number] [address] Dec, Other spe cified irregular [facility] 31 menstruation N92 .5 and [place], [place] Encounter for pr egnancy [id number] test, result pos itive Z32.[address] 13 Dec, [address] [id number] [place] [facility] [address] 18 Oct, 2021 Open wou nd of left thumb, [place], [place] initial encou nter S61.002A [id number] [place] [facility] [address] Apr, Dysuria R30.0 and Urinary [place] [employer], [place] tract infecti on without [id number] hematuria, site unspecified N39. [address] November, [address] [id number] [address] 03 Nov, 2020 Sprain of l eft ankle, [facility] Occupational [place] [employer], [place] unspe cified ligament, Health Department [id number] sequela S93.[address] 24 Oct, 2020 Sprain of o ther ligament Healthcare Occupational [employer] of le ft ankle, subsequent Health Department [id number] encounter S93. 492D [address] 14 Oct, 2020 Acute left ankle pain [facility] Occupational [employer], [place] M25.5 72 and Sprain of left Health Department [id number] ankle, unspeci fied ligament, initia l encounter S93.[address] Jul, Encounter f or other [place], [place] admin istrative [facility] [id number] examinations Z 02.[address] Jul, Physical ex am, Healthcare Occupational [employer], [place] pre-e mployment Z02.1 Health Department [id number] IMMUNIZATIONS No Known Immunizations SOCIAL HISTORY Qualifiers [...] CULTURE URINE 20220126 Pending Test URINE DIP ([facility]) VITAL SIGNS Height 59 in 2022-02-24 Height [...] Color Clarity Glucose negative Bilirubin Ketones Specific [place] Blood PH Protein negative Uro Nitrates Leukocytes [...] Glucose negative Bilirubin negative Ketones negative Specific [place] 1.000 Blood negative PH 7 Protein negative Uro normal Nitrates negative Leukocytes negative MATERNI 21 PLUS W/ESS AND SCA 2022-01-26 ([id number]) DATE SENT 01/26/22 RESULT SEE SEPARATE REPORT INHERITEST CORE ([id number]) 2022-01-26 DATE SENT 01/26/22 RESULT SEE SEPARATE [...] results, OB New OB, OB New OB, NURSE CLINICIAN 2 week follow up, NURSE CLINICIAN preg confirmation, ultrasound order, jamey left hand [...] udc, OCC udc , OCC pre-employ ppx, NURSE CLINICIAN Insurance Providers [facility] Member Patient Patient Patient Patient Patient Subscriber Subscriber Subscriber Group Insurance Plan Plan Plan Plan ID Relationship Address Phone Name Date of ID Name Date of No Type Insurance Insurance Insurance Coverage to Subscriber Address Phone Name Dates [place] [phone] [place] self summer [id number] ATTN 45 Syl[place] CLAIMS [facility] [id number] OCD - NSA [address] [phone] OCD - NSA self Summer [id number] Sylvie [facility] [address] OCD - [address] OCD - self summer [id number] ESCREEN [id number] [facility] [address] [place] [address] [place] self summer [id number] [facility] [address]
--- OUTSIDE RECORDS SUMMARY | 2022-07-17 01:37 | XMS_ITS ---
:2000 Author Organization [facility] Address [address] [place] [address] Care Team Providers Name Role Phone Neelam Polo Unavailable Unavailable PROBLEMS Type Condition ICD9-CM Code DRK95-LY Code Onset Condition SNO MED Code Dates Status Problem Depression F32.9 Aug, Active 930919920 2019 Problem Asthma, exercise J45.990 Active 313 43742 induced Problem control Z30.9 Active 780372 04 ALLERGIES Substance Reaction Event Type Date Status Amoxicillin rash Drug Allergy Jun, Active ENCOUNTERS Encounter Location Date Diagnosis [facility] [address] [facility] Jun, Bir th control Z30.9 [place] [address] Depression F 32.9 [facility] Feb, [place] [address] [facility] Oct, [place] [address] ADMINISTRATION [facility] Oct, [place] [address] [facility] [address] [facility] Sep, [place] [address] [facility] [address] [facility] Sep, [place], [place] [address] J45.990 and Depression F32.9 [facility] [address] [facility] Aug, [place] [address] Z00.00 ; Enc ounter for drug screening Z 02.83 ; Alcohol screenin g Z13.89 ; control Z30.9 ; Depression F32.9 and Acid reflux K21.9 [facility] [address] [facility] Jul, [place] [address] vaccination Z23 and Pre-employment examination Z02. 1 LPO-SPECIALTY TEAM [address] [facility] November, [place] [address] xxADMIT,COMMUNICATIONS [address] [facility] November, [place] [address] zzLPO-PRIM and PSYCH [address] [facility] November, [place] [address] episode of m ajor depressive disor barbara F32.0 LPO-SPECIALTY TEAM [address] [facility] Oct, [place] [address] zzLPO-PRIM and PSYCH [address] [facility] Oct, [place] [address] episode of m ajor depressive disor barbara F32.0 zzLPO-PRIM and PSYCH [address] [facility] Oct, [place] [address] F43.21 [facility] [address] [place] [address] Apr, [place] [address] zzLPO-PRIM and PSYCH [address] [facility] Apr, [place] [address] zzLPO-PRIM and PSYCH [address] [facility] Mar, Acid refl ux K21.9 ; [place] [address] Fatigue R53. 83 and Stress F43.9 zzLPO-PRIM and PSYCH [address] [facility] Jan, [place] [address] health check Z00.129 ; Encounter for dr ug screening Z02.83 ; Encounter for immunization Z23 and Alcohol screenin g Z13.89 [facility] [address] [place] [address] Dec, [place] [address] [facility] [address] [place] [address] Jul, [place] [address] [facility] [address] [place] [address] Sep, [place] [address] [facility] [address] [place] [address] Sep, Enlarged ly mph node 785.6 [place] [address] and FATIGUE 780.79 [facility] [address] [place] [address] Sep, Enlar ged lymph node 785.6 [place] [address] and FATIGUE 7 80.79 [facility] [address] [place] [address] Apr, Well baby/ [place] [address] V20.2 ; VACCI N FOR INFLUENZA V04.81 and HPV-NOT GIVEN-CA REGIVER REFUSES V64.05 [facility] [address] [place] [address] Apr, [place] [address] [address] [place] [address] Mar, [place] [address] [address] [place] [address] November[place] [address] CASE MANAGEMENT [address] [facility] Aug, [place] [address] [facility] Apr, Well baby/ [place] [address] V20.2 and MEN INGOCOCCAL VACCINE V03.89 [facility] 11 May, 2010 VACCIN FOR INFLUENZA OFFICE 1 [place], [place] V04.81 [address] [facility] Mar, [place] [address] [facility] Mar, [place] [address] 493.81 CASE MANAGEMENT 173 [facility] Feb, [place] [address] [facility] 18 Aug, 2009 Cough 786.2 OFFICE 1 [place] [address] [facility] 15 Dec, 2008 Acute URI [upper OFFICE 1 [place] [address] multiple sites 4 65.8 [facility] 8 [facility] November, Pneumo wendy NOS 486 OFFICE 1 [place] [address] ADMINISTRATION [address] [facility] Sep, [place] [address] [facility] 17 Sep, 2008 Well b adarsh/ child exam OFFICE 1 [place] V20.2 ; DTAP [place] [facility] [address] V06.1 and Abdomi nal pain, generalized 789. 07 [facility] [address] [facility] Jul, [place] [address] [facility] Jul, [place] [address] [facility] [address] [place] [address] Jul, Abdom inal pain, [place] [address] generalized 7 89.07 [facility] [address] [facility] Jun, Acu te URI [[place] [address] respiratory infection] of multiple sites 4 65.8 [facility] [address] [facility] Jun, [place] [address] [facility] May, [place] [address] [facility] [address] [facility] Dec, [place] [address] [facility] [address] [facility] November, Pha ryngitis NOS [address] [place] [address] [facility] [address] [facility] November, [place] [address] UNKNOWN November, [facility] [address] [facility] Aug, [place] [address] UNKNOWN 08 Aug, 2006 [facility] [address] 18 Jun, 2006 [place] [address] V04.81 and V ARICELLA VACCINATION V05. 4 UNKNOWN May, [facility] [address] 07 May, [address] INFECTION 112.1 and [place] [address] PREOP EXAM U [facility] V72.84 [facility] [address] 05 Apr, 2006 Enu resis 307.6 ; [place] [address] DERMATITIS 6 92.9 ; Upper respiratory infe ction NOS 465.9 and Mollus cum contagiosum 078. 0 [facility] [address] 16 Feb, 2006 [place] [address] UNKNOWN Feb, [facility] [address] 21 Jan, 2006 [place] [address] [facility] [address] 29 Dec, 2005 [place] [address] 078.0 ORTHOPEDIC OFFICE [address] 23 Dec, 2005 [place] [address] [facility] [address] 21 Dec, 2005 [place] [address] [facility] [address] 16 Dec, 2005 [place] [address] [facility] [address] 08 Dec, 2005 [place] [address] [address]IC OFF[address] 02 Dec, 2005 [place] [address] [facility] [address] 30 Nov, 2005 [place] [address] [facility] [address] 14 Oct, 2005 [place] [address] [facility] [address] 27 Sep, 2005 [place] [address] [facility] [address] 27 Sep, 2005 [place] [address] [facility] [address] 15 Sep, 2003 [place] [address] [facility] [address] 16 Dec, 2002 [place] [address] IMMUNIZATIONS Vaccine Route Administration Date Status Influenza HISTORY Unknown Mar 26, 2011 Administered -N.CL,NonState Unknown Jun 21, 2006 Administered Intranasal,>18yrs,single vaccine(88003) Chickenpox had disease Unknown November 29, 2000 Administe red -Influenza Flulaval NON-STATE w IM Intramuscular May 15, 2010 Administered preservative polio HISTORY Unknown December 18, 2002 Administered Hep B HISTORY adolescent or Unknown 1998 Admi nistered pediatric Hep B HISTORY adolescent or Unknown 1998 Admi nistered pediatric Hep B HISTORY adolescent or Unknown May 22, 1999 Admi nistered pediatric Hib HISTORY Unknown 1998 Administered Meningococcal STATE(Menveo) IM Intramuscular January 13, 2016 Adm inistered zzInfluenza FLUMIST QUAD STATE 2yr NS Nasal May 02, 2014 Administered thru 18yrs Tdap STATE Boostrix 7yrs or older Unknown September 18, 2008 Administered of age [address] Varicella STATE Unknown Jun 21, 2006 Administered [place] includes admin 66481 ID Intradermal Jul 11, 2018 Adm inistered Meningococcal STATE(Menactra) 71549 IM Intramuscular Apr 28 1 Administered -Influenza split STATE preser Unknown May 09, 2009 Ad ministered free>35mos (43269) Hib HISTORY Unknown Apr 19, 2000 Administered Hib HISTORY Unknown May 22, 1999 Administered Hib HISTORY Unknown January 21, 1999 Administered DTaP,HISTORY Unknown January 21, 1999 Administered DTaP,HISTORY Unknown May 19, 1999 Administered DTaP,HISTORY Unknown Apr 19, 2000 Administered DTaP,HISTORY Unknown December 18, 2002 Administered MMR HISTORY Unknown November 25, 1999 Administered MMR HISTORY Unknown December 18, 2002 Administered DTaP,HISTORY Unknown 1998 Administered polio HISTORY Unknown 1998 Administered polio HISTORY Unknown January 21, 1999 Administered polio HISTORY Unknown November 25, 1999 Administered SOCIAL HISTORY Qualifiers Date Current Smoker [...] PROCEDURES Procedure Date Ordered Result Body Site No HTN DX,BP <120/80 (27319) Aug 05, 2018 N.CL,STATE inj.fee,add.inj.(96279) Jun 21, 2006 -Influenza Flulaval NON-STATE w preservative May 15, 2010 -N.CL,NonState Intranasal,>18yrs,single Jun 21, 2006 vaccine(00484) Tob non-user (66802) Mar 26, 2016 BMI normal (95295) September 13, 2018 No HTN DX,BP <120/80 (58078) Mar 26, 2016 Med Rec done (05757) Jun 15, 2019 Dep screen neg (01571) Mar 26, 2016 Varicella STATE Jun 21, 2006 BMI normal (91089) Mar 26, 2016 BMI normal (84841) January 13, 2016 Med Rec done (77614) Aug 05, 2018 SBIRT SCREEN negative Aug 05, 2018 N.,STATE inj.fee,(Single or Combination)(57277) May 02, 2014 Tob non-user (68988) January 13, 2016 N.CL,INJ.FEE.MEDICARE-INFLUENZA(96968) May 15, 2010 N.,ON LICENSE OF [facility] inj.fee,(Single or Combination)(28815) January 13, 2016 BMI normal (62520) Jun 15, 2019 Med Rec done (05605) September 13, 2018 Tob user, counseled (92114) Aug 05, 2018 Med Rec done (40723) Mar 26, 2016 SBIRT screening 2016-01-13 negative SBIRT screening 2018-08-05 Negative zzInfluenza FLUMIST QUAD STATE 2yr thru 18yrs May 02, 2014 No HTN DX,BP <120/80 (42706) January 13, 2016 Dep screen neg (71256) January 13, 2016 Med Rec done (15902) January 13, 2016 PSYTX PT&/FAMILY 30 MINUTES (48653) November 06, 2016 EVAL,PSYCH DIAGNOSTIC October 12, 2016 No HTN DX,BP <120/80 (36799) Jun 15, 2019 [place] includes admin 05151 Jul 11, 2018 N.[facility] inj.fee,(Single or Combination)(36209) Jun 21, 2006 SBIRT screen w intervention (15529) January 13, 2016 -zzSTATE,inj.fee,(Single or combination) September 18, 2008 MENINGOCOCCAL VACCINE, IM January 13, 2016 Meningococcal STATE(Menactra) 23180 Apr 28, 2011 SBIRT SCREEN negative January 13, 2016 Tdap STATE Boostrix 7yrs or older of age [address] September 18, 2008 N.,STATE inj.fee,(Single or Combination)(65235) Apr 28, 2011 UA- TEST (g code 62983) Jun 15, 2019 RESULTS Name Result Date Reference Range UA-Urine ,IN OFFICE 2019-06-15 RESULT Neg UA-Urine ,IN OFFICE 2018-08-05 RESULT Neg UA-DIP W/REFLEX 2017-08-12 COL Yellow YELLOW CLARITY Clear CLEAR SG 1.020 1.001-1.035 GLU. Negative NEGATIVE GUIDO Negative NEGATIVE KET Negative NEGATIVE BLD Negative NEGATIVE PH 7.5 5.0-8.0 PROT Negative NEGATIVE NIT Negative NEGATIVE BROCK Negative NEGATIVE CBC WITH AUTO DIFF 2017-08-12 WBC 7.3 [...] 26.7 MO% 12.4 EO% 4.6 BA% 0.7 COMPMET 2017-08-12 GLUC 94 74-103 BUN 21 7-18 CREATS 0.86 0.55-1.30 EGFR >60 >=60 NA 140 136-145 K+ 4.0 3.7-5.0 CL 103 99-109 CO2 26 22-32 CA 8.8 8.5-10.1 TP 7.3 6.3-8.6 ALB 4.1 3.7-5.6 TBIL 0.3 0.0-1.0 DBIL 0.1 0.0-0.1 ALKP 98 46-116 AST 31 15-37 ALT 43 13-78 UA-Urine ,AT HOSPITAL 2017-08-12 HCG-U NEGATIVE NEGATIVE LIPASE 2017-08-12 LIP 126 73-393 X Abdomen 1 V 2017-08-12 See Below For Report CBC WITH AUTO DIFF 2014-09-18 WBC 9.9 4.5-15.5 RBC 4.4 3.5-6.0 HGB 12.8 11.5-15.5 HCT 38.2 35.0-45.0 MCV 87 77-100 MCH 29.2 25.0-35.0 MCHC 33.5 31.0-37.0 RDW 12.3 11.0-14.0 PLT 278 150-450 MPV 11.1 7.4-11.0 NE% 69.8 42.2-75.2 LY% 22.6 20.5-51.0 MO% 6.6 1.7-9.3 EO% 0.7 0.0-6.0 BA% 0.3 0.0-1.0 ANC 6.9 1.4-7.9 MONOSPOT 2014-09-18 MONOSPOT NEGATIVE NEGATIVE EKG-NON WEEKS 2012-08-08 UA-COLONY COUNT ONLY COLONY COUNT To Micro ANTIBIOTIC: Day1 Day 2 Isolate1 SOURCE: UA DIPSTICK ONLY-DIAGNOSTIC Color yellow Clarity Specific [place] >1.030 Glucose. neg Bilirubin neg Ketones tr Blood neg PH 7.0 Protein tr Urobilinogen 0.2 Nitrite neg Leukocytes tr UA-COLONY COUNT ONLY RAPID STREP SCREEN,IN OFFICE (2 Swab System) Result To Micro RAPID STREP SCREEN,IN OFFICE (2 Swab System) Result To Micro UA-DIP W/REFLEX SOURCE BILIRUBIN NEG BLOOD NEG CLARITY CLEAR COLOR YELLOW GLUCOSE NEG KETONES NEG LEUKOCYTES NEG NITRITES NEG PH 9.0 PROTEIN TRACE SPECIFIC GRAVITY 1.015 UROBILINOGEN 0.2 UROBILINOGEN UA-DIP W/REFLEX SOURCE BILIRUBIN NEG BLOOD NEG CLARITY Clear COLOR Yellow GLUCOSE NEG KETONES NEG LEUKOCYTES NEG NITRITES NEG PH 7.0 PROTEIN NEG SPECIFIC GRAVITY 1.025 UROBILINOGEN 0.2 UROBILINOGEN UA-COLONY COUNT ONLY COLONY [...] NEG SPECIFIC GRAVITY 1.015 UROBILINOGEN 0.2 UROBILINOGEN UA-DIP W/REFLEX SOURCE BILIRUBIN NEG BLOOD NEG CLARITY Clear COLOR Yellow GLUCOSE NEG KETONES NEG LEUKOCYTES NEG NITRITES NEG PH 6.5 PROTEIN NEG SPECIFIC GRAVITY 1.025 UROBILINOGEN 0.2 UROBILINOGEN UA-COLONY COUNT ONLY COLONY COUNT To Micro ANTIBIOTIC: Day1 Day 2 Isolate1 SOURCE: PT/INR PT 11.3 INR PT-INR 0.95 PT-INR Interp Goal INR range GOAL INR RANGE TABLET SIZE AVG.QD DOSE NEW AVG.QD DOSE NEXT INR DUE REASON FOR VISIT CPE, CPE roomer template, , Pap smear? Pt has never had one before, discuss BC , discuss BC , flu shot- pt would like to talk to provider about., Meds reviewed by pt,no longer taking: lexapro, [id number] (Pt would like to go back on), No medication refills needed at this time., refill BCP, Correcting allergies, Please call, 1 month f/u, needs note , med f/u, patient does not have any questions or concerns , patient wants refill of inhalor, does not know name, is interested in gettinga different inhalor, sent to RA in [place], [facility], NEW PCP, SBIRT, pt states she has no concerns at this time, Medications reviewed w/pt,med. list is correct, Meds reviewed by pt,new meds: vitamins, PPD Read, tb check, Pre employment physical, [employer] will be paying, will have paperwork, CPE, Neck Issues, 2nd no show for ERJ , Neck Issues r/s per moms request car not working., FU--patient lmom she needs to r/s 11/24, issue with neck r/s per pt request, [employer] Documentation, f/u patient RS, f/u, Medications listed [...] Rec to be done by ALY -zane, [facility]/new PCP, New PCP, [facility] flu shot. 15-18 year ck-female. , cholesterol, see preventative medicine, Medications reviewed w/pt,med. list is correct-tb, HPV. PT REQUESTING FLU SHOT TODAY, Flu Shot,VV, no response to letter inactive, check heart rate--mother requested date, Appt with BS, [facility], Medsreviewed, no longer taking: multivitamin -, [...] PREOP PE, having her arm reset in [facility] on the , PRE OP PE FOR [...] from office, SORE THROAT, follow up, ?UIT, [facility] Insurance Providers [facility] Health Member Patient Patient Patient Patient Patient Subscriber Subscriber Subscriber Group Insurance Plan Plan Plan Plan ID Relationship Address Phone Name Date of ID Name Date of No Type Insurance Insurance Insurance Coverage to Subscriber Address Phone Name Dates S-WELL ATTN: S-WELL self SUMMER 2000 [id number] SENSE CLAIMS SENSE [facility] MEDICAID [place] MEDICAID self SUMMER [id number] [place] [facility] GENER[facility] [address] SUMMER [id number] INSURANCE 2000 INSURANCE [facility] [id number] S-MEDICAID EDS [id number] S-MEDICAID self SUMMER [id number] [address] MEDICAID [place] MEDICAID self SUMMER [id number] [place] CLAIM[place] [facility] SELF PAY [address] SELF PAY summer [place] [id number] INSURANCE BLUE CROSS [address] BLUE CROSS SUMMER 315 [id number] [facility] [place] [address] BLUE CROSS [address] BLUE CROSS SUMMER 315 [id number] [place] [address] OCCUPATION [facility] ATTN OCCUPATION self SUMMER [id number] [facility] SARAH [facility] LEANN [address] [facility] [address] SELF PAY summer [place] [address] INSURANCE S-MEDICAID EDS [id number] S-MEDICAID self SUMMER [id number] [place] [address] WELL SENSE ATTN WELL SENSE self SUMMER [id number] CLAIMS [facility] [id number] S-MEDICAID EDS [id number] S-MEDICAID self SUMMER [id number] [place] [address] SELF PAY summer [place] [id number] SELF PAY self SUMMER 2000 AFTER BLUE [place] [address] SELF PAY self SUMMER [id number] AFTER [place]UE [place] [address] CROSS
[2022-07-17 13:19] LABS: Glucose 1 Hour 149 mg/dL
[2022-07-17 15:06] LABS: Glucose 3 Hour 131 mg/dL
== END 2022-07-17 01:36 | disposition home or self-care (01) ==
LOC: LBO 01:35
PROVIDERS: Advanced Practice Midwife; Visit Provider Advanced Practice Midwife
DX: Z34.93 Encounter for supervision of normal pregnancy, unspecified, third trimester (principal)
CPT/HCPCS: 36415; 82951

== ENCOUNTER 2022-07-29 01:36 | Outpatient (CLI) | payer BC, SELFPAY ==
--- OUTSIDE RECORDS SUMMARY | 2022-07-24 00:35 | XMS_ITS ---
:[address] [facility] Address [address] [place], [place] [id number] Care Team Providers Name Role Phone Anushka Eduardo Unavailable Unavailable PROBLEMS Type Condition ICD9-CM Code UNP08-TE Code Onset Condition SNO MED Code Dates Status Problem Other specified N92.5 Active 8018 2006 irregular menstruation ALLERGIES Substance Reaction Event Type Date Status Kiwi mouth numbness/tingling Drug Allergy Feb, Acti ve Apple (Diagnostic) diarrhea/stomach pain Drug Allergy Feb, Active Amoxicillin hives Drug Allergy Feb, Active ENCOUNTERS Encounter Location Date Diagnosis [address] Mar, [facility] [address] [id number] [address] Feb, Encounter for supervision [place] [address] of other normal , [place], [place] second trimester Z34.[id number] Feb, [facility] [address] [id number] [address] Jan, Encounter for supervision [place] [address] of other normal , [place], [place] first trimester Z34.81 ; [id number] Cervical cancer screening Z12.[address] for screening examin ation for sexually transmi tted disease Z11.[address] Jan, 7 weeks g estation of [facility] [address] Z3A.01 [place], [place] [id number] [address] Dec, Other spe cified irregular [facility] 31 menstruation N92 .5 and [place], [place] Encounter for pr egnancy [id number] test, result pos itive Z32.[address] 13 Dec, [address] [id number] [place] [facility] [address] 18 Oct, 2021 Open wou nd of left thumb, [place] initial encou nter S61.002A [id number] [facility] [address] Apr, Dysuria R30.0 and [facility] [place], [place] tract infecti on without [id number] hematuria, site unspecified N39. [address] November, [address] [id number] [address] 03 Nov, 2020 Sprain of l eft ankle, [facility] [place] unspe cified ligament, Health Department [id number] sequela S93.[address] 24 Oct, 2020 Sprain of o ther ligament [facility], [place] of le ft ankle, subsequent Health Department [id number] encounter S93. 492D [address] 14 Oct, 2020 Acute left ankle pain [facility] [place], [place] M25.5 72 and Sprain of left Health Department [id number] ankle, unspeci fied ligament, initia l encounter S93.[address] Jul, Encounter f or other [place] admin istrative [facility] Department [id number] examinations Z 02.[address] Jul, Physical ex am, [facility] pre-e mployment Z02.1 Health Department [id number] IMMUNIZATIONS No Known Immunizations SOCIAL HISTORY Qualifiers [...] CULTURE URINE [id number] Pending Test URINE DIP ([facility]) VITAL SIGNS Height 59 in 2022-02-24 Height [...] Color Clarity Glucose negative Bilirubin Ketones Specific [place] Blood PH Protein negative Uro Nitrates Leukocytes [...] Glucose negative Bilirubin negative Ketones negative Specific [place] 1.000 Blood negative PH 7 Protein negative Uro normal Nitrates negative Leukocytes negative MATERNI 21 PLUS W/ESS AND SCA 2022-01-26 ([id number]) DATE SENT 01/26/22 RESULT SEE SEPARATE REPORT INHERITEST CORE ([id number]) 2022-01-26 DATE SENT 01/26/22 RESULT SEE SEPARATE [...] results, OB New OB, OB New OB, JEWELRY INSPECTOR 2 week follow up, JEWELRY INSPECTOR preg confirmation, ultrasound order, jamey left hand [...] udc, OCC udc , OCC pre-employ ppx, JEWELRY INSPECTOR Insurance Providers [facility] Health Member Patient Patient Patient Patient Patient Subscriber Subscriber Subscriber Group Insurance Plan Plan Plan Plan ID Relationship Address Phone Name Date of ID Name Date of No Type Insurance Insurance Insurance Coverage to Subscriber Address Phone Name Dates [place] [phone] [place] self summer [id number] ATTN 45 Sylvie CLAIMS [facility] [id number] [facility] [address] self summer [id number] [facility] [address] OCD - NSA [address] [phone] OCD - NSA self Summer [id number] [facility] [address] OCD - [address] OCD - self summer [id number] ESCREEN 77[address] ESCREEN [facility] [address]
--- NOTE | 2022-07-29 07:50 | DI.US_ITS ---
Exam(s) US OB MELL WEIGHT EXAM: US OB MELL WEIGHT CLINICAL HISTORY: covid in ,u07.1. TECHNIQUE: Transabdominal obstetrical ultrasound performed. COMPARISON: No exams were available for comparison FINDINGS:: Number of fetuses: One. position: Vertex. Placental location: Fundal and right-sided no evidence of previa. BIOMETRIC DATA: BPD: 94mm = 38+ 2 weeks HC: 339mm = 38+ 6 weeks AC: 116mm = 38+ 1 weeks FL: 80 mm = 41+ 0 weeks EFW: 4055 Gms = greater than the 97th% Composite Age: 40+ 2 weeks EDC: 04 August 2021 Amniotic fluid index: 26.2 cm. Amount of fluid is visually within normal limits. heart rate motion is Dopplered at: 116 bpm. IMPRESSION: size and weight are above the expected range. DATA REPOSITORY:
== END 2022-07-29 01:56 ==
PROVIDERS: Visit Provider Advanced Practice Midwife
DX: O98.513 Other viral diseases complicating pregnancy, third trimester (principal); U07.1 COVID-19; Z3A.40 40 weeks gestation of pregnancy
CPT/HCPCS: 76816

== ENCOUNTER 2022-07-31 07:55 | Outpatient (CLI) | payer BC, SELFPAY ==
--- OUTSIDE RECORDS SUMMARY | 2022-07-31 08:06 | XMS_ITS | Continuity of Care Document ---
:2000 Author Organization [facility] Ambulatory Clinics Address [address] [place] [address] Encounter [facility] FIN NBR [id number] Date(s): 06/02/22 - 06/02/22 [facility] [address] [place], [place] [address] Encounter Diagnosis Supervision of normal first (Discharge Diagnosis) - 06/01/22 HSV infection (Discharge Diagnosis) - 06/01/22 Discharge Disposition: Home or Self Care Attending Physician: Anushka Eduardo APRN Allergies, Adverse Reactions, Alerts Substance Reaction Severity Status amoxicillin Hives Moderate Active Kiwi Mouth numbness/tingling Severe Active Apple fruit Diarrhea/stomach pain Moderate Active Assessment and Plan Future Scheduled TestsLaboratoryCBC w/ Diff 05/31/22Rhogam 06/01/22ABSC Echo 06/01/22Glucose 1Hr 50 gm OB 05/31/22RadiologyUS OB Greater Than 14 Weeks 05/05/22 Medications Multivitamins with FA 0.8 mg oral tablet 1 tab, Oral, Daily, # 100 tab, 0 Refill(s) Start Date: 05/01/22 Status: Ordered Problem List Condition Confirmation Course Effective Dates Status Health Stat us Informant HSV infection Confirmed Active 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
--- OUTSIDE RECORDS SUMMARY | 2022-07-31 08:06 | XMS_ITS | Continuity of Care Document ---
:2000 Author Organization [facility] e Address [address] [place] [address] Encounter [facility] [facility] NBR [id number] Date(s): 05/01/22 - 05/01/22 [facility] [address], [place] [email or web address] Discharge Disposition: Home or Self Care Attending Physician: Anushka Eduardo APRN Admitting Physician: Anushka Eduardo APRN Allergies, Adverse Reactions, Alerts Substance Reaction Severity Status amoxicillin Hives Moderate Active Kiwi Mouth numbness/tingling Severe Active Apple fruit Diarrhea/stomach pain Moderate Active Assessment and Plan Future AppointmentsAppointment Date:06/01/2022 07:00:00 AM Scheduled Provider:Lonnie Riggins Location: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
--- OUTSIDE RECORDS SUMMARY | 2022-07-31 08:06 | XMS_ITS | Continuity of Care Document ---
:2000 Author Organization [facility] e Address [address] [place] [address] Encounter [facility] [facility] NBR [id number] Date(s): 05/05/22 - 05/05/22 [facility] [address] [place] [address]- us Discharge Disposition: Home or Self Care Attending Physician: Anushka Eduardo APRN Admitting Physician: Anushka Eduardo APRN Allergies, Adverse Reactions, Alerts Substance Reaction Severity Status amoxicillin Hives Moderate Active Kiwi Mouth numbness/tingling Severe Active Apple fruit Diarrhea/stomach pain Moderate Active Assessment and Plan Future AppointmentsAppointment Date:06/01/2022 07:00:00 AM Scheduled Provider:Lonnie Riggins Location:[facility] Appointment Type:OB Follow Up Future Scheduled TestsRadiologyUS OB Greater Than 14 Weeks 05/05/22 Medications Multivitamins with FA 0.8 mg oral tablet 1 tab, Oral, Daily, # 100 tab, 0 Refill(s) Start Date: 05/01/22 Status: Ordered Problem List Condition Confirmation Course Effective Dates Status Health Stat us Informant 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 Migraine Confirmed Active Encounter for Confirmed Active supervision of normal in multigravida in second trimester Confirmed 11/11/21 Active Procedures Procedure Date Related Diagnosis Body Site Status History of surgery1 2004 Complete d 1Right arm surgery X 2 @ [facility] Results Radiology Reports Exam Date Time Procedure Performing Provider Status 05/05/22 4:46 PM US OB Greater Than 14 Weeks Raiza Crow (Verified) Notes:(US OB Greater Than 14 Weeks) Reason For Exam: supervisionUS OB Greater Than 14 Weeks EXAM DESCRIPTION: US OB Greater Than 14 Weeks 05/05/2022 INDICATION: SUPERVISION TECHNIQUE: Grayscale and color Doppler obstetric ultrasound. COMPARISON: 01/02/2022 FINDINGS: Single live uterine gestation which appears to be in transverse position with mean estimated gestational age of 26 weeks 1 day for an ultrasound EDC of 08/10/2022. Amniotic fluid volume is qualitatively normal. The cervix is closed. Placenta is posterior in position with no previa, terminating greater than 2 cm from the internal os. BPD: 26 weeks 2 days. Head circumference: 26 weeks 0 days. Abdominal circumference: 26 weeks 3 days. Femur length: 25 weeks 5 days. heart rate was 160 beats per minute. Survey of anatomy is limited by gestational age and reveals no obvious anomaly. Views of the face, head including lateral ventricles, choroid plexus and cerebellum, chest including four-chamber heart and outflow tract views, abdomen including stomach, kidneys, bladder and cord insertion, three-vessel umbilical cord, as well as views of the spine and extremities were submitted. Estimated weight is 888 g which is the 52nd percentile by AUA. IMPRESSION: Single live intrauterine gestation with mean estimated gestational age of 26 weeks 1 day for an ultrasound EDC of 08/10/2022. JOB #: [id number] Final Signed by: Meño Yan MD Signed (Electronic Signature): 05/05/2022 5:04 pm Exam Date Time Procedure Performing Provider Status 05/05/22 12:02 PM US OB Follow Up DomainUser, Generated; Auth (Ve rified) Notes:(US OB Follow Up) Reason For Exam: supervisonUS OB Follow Up EXAM DESCRIPTION: US OB Follow Up 05/05/2022 INDICATION: SUPERVISON TECHNIQUE: Grayscale and color Doppler obstetric ultrasound. COMPARISON: 01/02/2022 FINDINGS: Single live uterine gestation with mean estimated gestational age of 26 weeks 1 days for an ultrasound EDC of 08/10/2022. Amniotic fluid volume is qualitatively normal. The cervix is closed. Placenta is posterior in position with no previa, terminating greater than 2 cm from the internal os. BPD: 26 weeks 2 days. Head circumference: 26 weeks 0 days. Abdominal circumference: 26 weeks 3 days. Femur length: 25 weeks 5 days. heart rate was 160 bpm. No anomaly is identified on submitted images. Estimated weight is 888 g which is the 52nd percentile by AUA. IMPRESSION: Single live intrauterine gestation with mean estimated gestational age of 26 weeks 1 days for an ultrasound EDC of 08/10/2022. JOB #: [id number] Final Signed by: Meño Yan MD Signed (Electronic Signature): 05/05/2022 1:01 pm Social History Social History Type Response Smoking Status Smoking tobacco use: Former tobacco user; Never; Started at age: 15.0; Stopped at age: 21; entered on: 05/01/22 Sex Female US for Meño Yan MD: VERIFY, VERIFY Event Display: Report EXAM DESCRIPTION: US OB Follow Up 05/05/2022 INDICATION: SUPERVISON TECHNIQUE: Grayscale and color Doppler obstetric ultrasound. COMPARISON: 01/02/2022 FINDINGS: Single live uterine gestation with mean estimated gestational age of 26 weeks 1 days for an ultrasound EDC of 08/10/2022. Amniotic fluid volume is qualitatively normal. The cervix is closed. Placenta is posterior in position with no previa, terminating greater than 2 cm from the internal os. BPD: 26 weeks 2 days. Head circumference: 26 weeks 0 days. Abdominal circumference: 26 weeks 3 days. Femur length: 25 weeks 5 days. heart rate was 160 bpm. No anomaly is identified on submitted images. Estimated weight is 888 g which is the 52nd percentile by AUA. IMPRESSION: Single live intrauterine gestation with mean estimated gestational age of 26 weeks 1 days for an ultrasound EDC of 08/10/2022. JOB #: [id number] Final Signed by: Meño Yan MD Signed (Electronic Signature): 05/05/2022 1:01 pm US for in second or third trimester Meño Yan MD: VERIFY, VERIFY Event Display: Report EXAM DESCRIPTION: US OB Greater Than 14 Weeks 05/05/2022 INDICATION: SUPERVISION TECHNIQUE: Grayscale and color Doppler obstetric ultrasound. COMPARISON: 01/02/2022 FINDINGS: Single live uterine gestation which appears to be in transverse position with mean estimated gestational age of 26 weeks 1 day for an ultrasound EDC of 08/10/2022. Amniotic fluid volume is qualitatively normal. The cervix is closed. Placenta is posterior in position with no previa, terminating greater than 2 cm from the internal os. BPD: 26 weeks 2 days. Head circumference: 26 weeks 0 days. Abdominal circumference: 26 weeks 3 days. Femur length: 25 weeks 5 days. heart rate was 160 beats per minute. Survey of anatomy is limited by gestational age and reveals no obvious anomaly. Views of the face, head including lateral ventricles, choroid plexus and cerebellum, chest including four-chamber heart and outflow tract views, abdomen including stomach, kidneys, bladder and cord insertion, three-vessel umbilical cord, as well as views of the spine and extremities were submitted. Estimated weight is 888 g which is the 52nd percentile by AUA. IMPRESSION: Single live intrauterine gestation with mean estimated gestational age of 26 weeks 1 day for an ultrasound EDC of 08/10/2022. JOB #: [id number] Final Signed by: Meño Yan MD Signed (Electronic Signature): 05/05/2022 5:04 pm
--- OUTSIDE RECORDS SUMMARY | 2022-07-31 08:06 | XMS_ITS | Continuity of Care Document ---
:2000 Author Organization [facility] Ambulatory Clinics Address [address] [place] [address] Encounter [facility] NBR [id number] Date(s): 05/01/22 - 05/01/22 [facility] Ambulatory Clinics [address] [place], [place] [address] Encounter Diagnosis Normal in second trimester (Discharge Diagnosis) - 05/01/22 HSV infection (Discharge Diagnosis) - 05/01/22 Carrier of genetic disorder (Discharge Diagnosis) - 05/01/22 Discharge Disposition: Home or Self Care Attending Physician: Chintan Doherty Allergies, Adverse Reactions, Alerts Substance Reaction Severity Status amoxicillin Hives Moderate Active Kiwi Mouth numbness/tingling Severe Active Apple fruit Diarrhea/stomach pain Moderate Active Assessment and Plan Future AppointmentsAppointment Date:06/01/2022 07:00:00 AM Scheduled Provider:Lonnie Riggins Location:[facility] Appointment Type:OB Follow Up Functional Status 05/01/22 Other exposure to Infectious Disease None Medications Multivitamins with FA 0.8 mg oral tablet 1 tab, Oral, Daily, # 100 tab, 0 Refill(s) Start Date: 05/01/22 Status: Ordered Problem List Condition Confirmation Course Effective Dates Status Health Stat Informant 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 Results Most recent to oldest [Reference Range]: 1 Protein Urine Dipstick Negative (05/01/22 8:42 AM) Glucose Urine Dipstick 50 mg/dl (05/01/22 8:42 AM) Urine Color Urine Dipstick Yellow (05/01/22 8:42 AM) Urine Appearance Urine Dipstick Clear (05/01/22 8:42 AM) Vital Signs Most recent to oldest 1 2 3 4 [Reference Range]: Blood Pressure 98/54 mmHg [90-140/60-90 mmHg] (05/01/22 8:42 AM) Weight 52 kg 53.9 kg 53.9 kg (05/01/22 9:00 AM) (05/01/22 8:42 AM) (05/01/22 8:42 A M) Weight Measured (lbs) 114.64 lb 118.829 lb (05/01/22 9:00 AM) (05/01/22 8:42 AM) [place] Body Weight 56.909 kg 45.5 kg Calculated (05/01/22 9:00 AM) (05/01/22 8:42 AM) Pre- Weight 44.91 kg (05/01/22 8:42 AM) Cumulative Weight Gain 9 kg (05/01/22 8:42 AM) Height 165 cm 149.86 cm 149.86 cm (05/01/22 9:00 AM) (05/01/22 8:42 AM) (05/01/22 8:42 A M) Height/Length Measured 64.96 inch 59 inch (inches) (05/01/22 9:00 AM) (05/01/22 8:42 AM) BSA Measured 1.54 m2 1.5 m2 (05/01/22 9:00 AM) (05/01/22 8:42 AM) Body Mass Index 19.1 kg/m2 19.1 kg/m2 24 kg/m2 24 kg/m2 (05/01/22 9:00 AM) (05/01/22 9:00 AM) (05/01/22 8:42 A M) (05/01/22 8:42 AM) Social History Social History Type Response Smoking Status Smoking tobacco use: Former tobacco user; Never; Started at age: 15.0; Stopped at age: 21; entered on: 05/01/22 Sex Female
--- OUTSIDE RECORDS SUMMARY | 2022-07-31 08:06 | XMS_ITS | Continuity of Care Document ---
:1998 Author Organization [facility] e Address [address] [place] [address] Encounter [facility] FIN NBR [id number] Date(s): 04/11/22 - 04/12/[address] [address]- Encounter Diagnosis Acute viral syndrome (Discharge Diagnosis) - 04/12/22 Discharge Disposition: Home w/ Home Health Care Attending Physician: Phil Veloz MD Admitting Physician: Phil Veloz MD Referring Physician: Phil Veloz MD Allergies, Adverse Reactions, Alerts Substance Reaction Severity Status amoxicillin Moderate Active Functional Status 04/11/22 Family Member Travel History No recent travel Recent Travel History No recent travel Other exposure to Infectious Disease Exposure to respi ratory illness of unknown etiology Mental Status 04/11/22 Eye Opening Response Darling Spontaneously Best Verbal Response Avinash Oriented Best Motor Response Darling Obeys commands Darling Coma Score 15 Results Laboratory List Name Date SARS-CoV-2 (Covid-19) AG (Yani) POCT 04/12/22 Respiratory Panel 2.1 ([facility]) 04/12/22 Most recent to oldest [Reference Range]: 1 2 Adenovirus RespP-BFire [Not Detected] Not Detected (04/12/22 12:30 AM) Bordetella parapertussis RespP-BFire [Not Not Detected Detected] (04/12/22 12:30 AM) Bordetella pertussis RespP-BFire [Not Not Detected Detected] (04/12/22 12:30 AM) Chlamydophila pneumoniae RespP-BFire [Not Not Detected Detected] (04/12/22 12:30 AM) Coronavirus 229E (Not COVID-19) RP-BFire [Not Not Detected Detected] (04/12/22 12:30 AM) Coronavirus HKU1 (Not COVID-19) RP-BFire [Not Not Detected Detected] (04/12/22 12:30 AM) Coronavirus NL63 (Not COVID-19) RP-BFire [Not Not Detected Detected] (04/12/22 12:30 AM) Coronavirus OC43 (Not COVID-19) RP-BFire [Not Not Detected Detected] (04/12/22 12:30 AM) Human Metapneumonovirus RespP-BFire [Not Not Detected Detected] (04/12/22 12:30 AM) Human Rhinovirus/Enterovirus RespP-BFir [Not Not Detected Detected] (04/12/22 12:30 AM) Influenza A RespP-BFire [Not Detected] Not Detected (04/12/22 12:30 AM) Influenza B RespP-BFire [Not Detected] Not Detected (04/12/22 12:30 AM) Mycomplasma pneumoniae RespP-BFire [Not Not Detected Detected] (04/12/22 12:30 AM) Parainfluenza Virus 1 RespP-BFire [Not Not Detected Detected] (04/12/22 12:30 AM) Parainfluenza Virus 2 RespP-BFire [Not Not Detected Detected] (04/12/22 12:30 AM) Parainfluenza Virus 3 RespP-BFire [Not Not Detected Detected] (04/12/22 12:30 AM) Parainfluenza Virus 4 RespP-BFire [Not Not Detected Detected] (04/12/22 12:30 AM) Respiratory Syncytial Virus RespP-BFire [Not Not Detected Detected] (04/12/22 12:30 AM) SARS-CoV-2 (COVID-19) RP-BFire [Not Detected] Not Detected (04/12/22 12:30 AM) SARS-CoV or CoV-2 (COVID-19) Ag (Yani) Negative [Negative] (04/12/22 12:44 AM) Employed in healthcare? Unknown No *NA* *NA* (04/12/22 12:44 AM) (04/12/22 12:30 AM) Symptomatic as defined by CDC? Unknown Unknown *NA* *NA* (04/12/22 12:44 AM) (04/12/22 12:30 AM) Date of onset (Lab) Unknown *NA* (04/12/22 12:44 AM) Hospitalized due to COVID-19? Unknown No *NA* *NA* (04/12/22 12:44 AM) (04/12/22 12:30 AM) In ICU? Unknown No *NA* *NA* (04/12/22 12:44 AM) (04/12/22 12:30 AM) Group care resident? Unknown No *NA* *NA* (04/12/22 12:44 AM) (04/12/22 12:30 AM) status? Unknown *NA* *NA* (04/12/22 12:44 AM) (04/12/22 12:30 AM) Vital Signs Most recent to oldest [Reference Range]: 1 Temperature Oral [35.8-37.3 Deg C] 37.3 Deg C (04/11/22 11:24 PM) Peripheral Pulse Rate [60-100 bpm] 156 bpm *HI* (04/11/22 11:24 PM) Respiratory Rate [12-24 br/min] 20 br/min (04/11/22 11:24 PM) Blood Pressure [90-140/60-90 mmHg] 113/56 mmHg (04/11/22 11:24 PM) Weight 52.00 kg (04/11/22 11:24 PM) Weight Dosing 52.00 kg (04/11/22 11:44 PM) Height 165.000 cm (04/11/22 11:24 PM) Height/Length Dosing 165.000 cm (04/11/22 11:44 PM) Social History Social History Type Response Tobacco Never tobacco user Tobacco U se:. Sex Female Hospital Discharge Instructions Follow Up Care04/11/2022 23:24:56With:Return to the Emergency Department Address: When: only if needed Comments:for worsening symptoms or if interested in further evaluation
[2022-07-31 09:10] VITALS: BP 109/55; PULSE 103; TEMP 36.7
[2022-07-31 09:19] VITALS: BP 109/55; PULSE 103
--- NOTE | 2022-07-31 10:13 | W.OBNST ---
Date of service: 07/31/22 Time of Service: 10:13 NST Evaluation Reason for NST Reasons for Nonstress Test: POLYHYDRAMNIOS Gestational Age Gestational Age in Weeks and Days: 37 Weeks and 3Days Test and Monitor Explained Test/Monitor Explained: Test Explained, Monitor Explained and Patient Verbalized Understanding Vital Signs Blood Pressure: 109/55 Pulse: 103 Temperature: 98.1 F Urine Results Urine Protein: Negative Urine Ketones: Positive Urine Glucose: Negative Urine Blood: Negative NST Information Date on Monitor: 07/31/22 Time on Monitor: 09:18 Date off Monitor: 07/31/22 Time off Monitor: 10:00 Total Time on Monitor: 42 NST Interventions: PO Hydration Contraction Frequency: 0 NST Evaluation Patient States Movement: Present FHR Baseline: 130 Variability: Moderate 6-25 bpm Accelerations: 15x15 Decelerations: None NST Results: Reactive Note N/A NST Note Note: NST for polyhydramnios. Reactive NST. Will continue with twice weekly NST. Signs of labor reviewed. NST Reviewed and Verified by: Federica Corbett
[2022-07-31 10:14] VITALS: BP 109/55; PULSE 103; TEMP 36.7
== END 2022-07-31 10:03 | disposition home or self-care (01) ==
LOC: BCD 08:04 → OBS 09:08
PROVIDERS: Visit Provider Advanced Practice Midwife
DX: O40.3XX0 Polyhydramnios, third trimester, not applicable or unspecified (principal); Z3A.37 37 weeks gestation of pregnancy
CPT/HCPCS: 59025

== ENCOUNTER 2022-08-04 07:38 | Outpatient (CLI) | payer BC, SELFPAY ==
[2022-08-04 09:41] VITALS: BP 101/60; PULSE 106; TEMP 36.7
[2022-08-04 09:45] VITALS: BP 101/60; PULSE 106
[2022-08-04 10:09] LABS: HGB 8.8 g/dL (11.2-15.7); MCH 24.8 pg (27.0-33.0); MCHC 30.3 % (32.0-36.0); MCV 82 fL (80-95); MPV 9.7 fL (8.0-11.0); Platelet Count 316 10^3/uL (130-400); RBC 3.55 10^6/uL (3.93-5.22); WBC 16.71 10^3/uL (4.4-10.8)
--- NOTE | 2022-08-04 10:56 | W.OBNST ---
Date of service: 08/04/22 Time of Service: 10:56 NST Evaluation Reason for NST Reasons for Nonstress Test: POLYHYDRAMNIOS Gestational Age Gestational Age in Weeks and Days: 38 Weeks and 0Days Test and Monitor Explained Test/Monitor Explained: Test Explained, Monitor Explained and Patient Verbalized Understanding Vital Signs Blood Pressure: 101/60 Pulse: 106 Temperature: 98.1 F Urine Results Urine Protein: Negative Urine Ketones: Negative Urine Glucose: Negative Urine Blood: Negative NST Information Date on Monitor: 08/04/22 Time on Monitor: 09:42 Date off Monitor: 08/04/22 Time off Monitor: 10:25 Total Time on Monitor: 43 NST Interventions: PO Hydration NST Evaluation Patient States Movement: Present FHR Baseline: 130 Variability: Moderate 6-25 bpm Accelerations: 15x15 Decelerations: None NST Results: Reactive Note Presentation Presentation Results: vertex Coding for Presentation w/NST: Completed Exam NST Note Note: NST due to polyhydramnios. Reactive NST and occasional contractions. Return to center in 3 days for NST and MELL NST Reviewed and Verified by: Federica Corbett
[2022-08-04 10:57] VITALS: BP 101/60; PULSE 106; TEMP 36.7
[2022-08-05 12:00] LABS: HSV Type 1 Ab, IgG Positive (Negative); HSV Type 2 Ab, IgG Negative (Negative)
[2022-08-05 13:49] LABS: Chlamydia Result Negative (Negative); GC Result Negative (Negative)
== END 2022-08-04 10:34 | disposition home or self-care (01) ==
LOC: BCD 07:41 → OBS 09:39
PROVIDERS: Visit Provider Advanced Practice Midwife
DX: O40.3XX0 Polyhydramnios, third trimester, not applicable or unspecified (principal); Z3A.38 38 weeks gestation of pregnancy
CPT/HCPCS: 59025; 36415; 85027; 87491; 87591; 86695; 86696; 87081

== ENCOUNTER 2022-08-07 07:59 | Outpatient (CLI) | payer BC, SELFPAY ==
[2022-08-07 15:48] VITALS: BP 110/65; PULSE 114
[2022-08-07 16:18] VITALS: BP 110/65; PULSE 114; TEMP 36.6
--- NOTE | 2022-08-07 16:34 | W.OBNST ---
Date of service: 08/07/22 Time of Service: 16:34 NST Evaluation Reason for NST Reasons for Nonstress Test: POLYHYDRAMNIOS Gestational Age Gestational Age in Weeks and Days: 38 Weeks and 0Days Test and Monitor Explained Test/Monitor Explained: Test Explained, Monitor Explained and Patient Verbalized Understanding Vital Signs Blood Pressure: 110/65 Pulse: 114 NST Information Date on Monitor: 08/07/22 Time on Monitor: 15:45 Date off Monitor: 08/07/22 Time off Monitor: 16:15 Total Time on Monitor: 30 Contraction Frequency: 0 NST Evaluation Patient States Movement: Present FHR Baseline: 145 Variability: Moderate 6-25 bpm Accelerations: 15x15 Decelerations: None NST Results: Reactive Note MELL Indication: Polyhydraminos Largest Vertical Pocket: 9.7 Total MELL: 24.6 Other Pertinent Findings: Presentation (cephalic) and Placental Location (posterior) Coding for MELL w/NST: Completed Exam NST Note Note: MELL 24.6 Continue surveillance until labor Next appt 08/12/22 on BC after iron infusion NST Reviewed and Verified by: Natividad Pitts
[2022-08-07 16:37] VITALS: BP 110/65; PULSE 114
== END 2022-08-07 16:30 | disposition home or self-care (01) ==
LOC: BCD 08:00 → OBS 15:41
PROVIDERS: Visit Provider Advanced Practice Midwife
DX: O40.3XX0 Polyhydramnios, third trimester, not applicable or unspecified (principal); Z3A.38 38 weeks gestation of pregnancy
CPT/HCPCS: 59025

== ENCOUNTER 2022-08-12 12:24 | Outpatient (CLI) | payer BC, SELFPAY ==
[2022-08-12 15:00] VITALS: BP 108/68; PULSE 104; TEMP 36.8
[2022-08-12 15:15] VITALS: BP 108/68; PULSE 104
--- NOTE | 2022-08-12 16:23 | W.OBNST ---
Date of service: 08/12/22 Time of Service: 15:40 NST Evaluation Reason for NST Reasons for Nonstress Test: POLYHYDRAMNIOS Gestational Age Gestational Age in Weeks and Days: 39 Weeks and 1Days Test and Monitor Explained Test/Monitor Explained: Test Explained, Monitor Explained and Patient Verbalized Understanding Vital Signs Blood Pressure: 108/68 Pulse: 104 Temperature: 98.2 F NST Information Date on Monitor: 08/12/22 Time on Monitor: 15:02 Date off Monitor: 08/12/22 Time off Monitor: 15:43 Total Time on Monitor: 41 NST Interventions: PO Hydration NST Evaluation Patient States Movement: Present FHR Baseline: 130 Variability: Moderate 6-25 bpm Accelerations: 15x15 Decelerations: None NST Results: Reactive Note N/A NST Note Note: NST is reactive and reassuring. Kathie is not feeling regular contractions. She did IV iron infusion today and hgb was 9.9 prior to infusion. She will return 08/18/22 for NST and possibly stay for induction as we discussed Polyhydramnios and potential risks and benefits of induction. Kathie reported she would feel ready by next week to be induced. RAHUL NST Reviewed and Verified by: Federica Nguyễn
[2022-08-12 16:25] VITALS: BP 108/68; PULSE 104; TEMP 36.8
== END 2022-08-12 15:43 ==
LOC: BCD 12:24 → OBS 15:13
PROVIDERS: Visit Provider Advanced Practice Midwife
DX: O40.3XX0 Polyhydramnios, third trimester, not applicable or unspecified (principal); Z3A.39 39 weeks gestation of pregnancy
CPT/HCPCS: 59025

== ENCOUNTER 2022-08-18 11:39 | Outpatient (CLI) | payer BC, SELFPAY ==
[2022-08-18 16:04] VITALS: BP 112/66; PULSE 117; TEMP 36.6
--- NOTE | 2022-08-18 16:20 | W.OBNST ---
Date of service: 08/18/22 Time of Service: 16:20 NST Evaluation Reason for NST Reasons for Nonstress Test: OTHER, SEE COMMENT Reason for NST Other: Extra fluid Gestational Age Gestational Age in Weeks and Days: 40 Weeks and 0Days Test and Monitor Explained Test/Monitor Explained: Test Explained and Monitor Explained Vital Signs Blood Pressure: 112/66 Pulse: 117 Temperature: 97.9 F Urine Results Urine Protein: Positive Urine Ketones: Negative Urine Glucose: Negative NST Information Date on Monitor: 08/18/22 Time on Monitor: 15:44 Date off Monitor: 08/18/22 Time off Monitor: 16:16 Total Time on Monitor: 32 NST Interventions: None NST Evaluation Patient States Movement: Present FHR Baseline: 135 Variability: Moderate 6-25 bpm Accelerations: 15x15 Decelerations: None NST Results: Reactive Note N/A NST Note Note: 08/18/22: Kathie is declining induction of labor today. She prefers to have longer to see if her labor will occur naturally as she does not want synthetic hormones in her body we talked about risks of over distention of the uterus by LGA baby and high amniotic fluid and how it can prevent her from saurav normally and that she might not go into labor on her own. I reviewed that she has risks for abnormal labor, C/S and PPH related to her risks. Kathie feels she has the information she needs to make a decision in relation to benefits, risks and alternatives to continued expectant management vs induction of labor today. I reviewed that waiting for induction could increase these risks as baby gets bigger and placenta gets older and that baby might not tolerate labor as well after her due date. She does not want induction today. She will return on for NST and MELL and further discussion. I reviewed the importance of reporting any concerns such as decreased movement, contractions, leaking fluid or bleeding or pain that is unusual for her. She will be seen in 2 days at 1330 for NST and MELL. RAHUL MARREROT Reviewed and Verified by: Federica Nguyễn
[2022-08-18 16:27] VITALS: BP 112/66; PULSE 117; TEMP 36.6
== END 2022-08-18 16:24 | disposition home or self-care (01) ==
LOC: BCD 11:40 → OBS 15:36
PROVIDERS: Visit Provider Advanced Practice Midwife
DX: O48.0 Post-term pregnancy (principal); O40.3XX0 Polyhydramnios, third trimester, not applicable or unspecified; Z3A.40 40 weeks gestation of pregnancy
CPT/HCPCS: 59025

== ENCOUNTER 2022-08-20 07:49 | Outpatient (CLI) | payer BC, SELFPAY ==
[2022-08-20 14:32] VITALS: BP 105/70; PULSE 116; TEMP 37
[2022-08-20 15:07] VITALS: BP 105/70; PULSE 116
--- NOTE | 2022-08-20 15:59 | PDOC.NST_ITS ---
Date of service: 08/20/22 Time of Service: 15:59 NST Evaluation Reason for NST Reasons for Nonstress Test: POSTDATES Gestational Age Gestational Age in Weeks and Days: 40 Weeks and 2Days Test and Monitor Explained Test/Monitor Explained: Test Explained, Monitor Explained and Patient Verbalized Understanding Vital Signs Blood Pressure: 105/70 Pulse: 116 Temperature: 98.6 F Urine Results Urine Protein: Negative Urine Ketones: Negative Urine Glucose: Negative Urine Blood: Negative NST Information Date on Monitor: 08/20/22 Time on Monitor: 15:05 Date off Monitor: 08/20/22 Time off Monitor: 15:33 Total Time on Monitor: 28 Contraction Frequency: 17 NST Evaluation Patient States Movement: Present FHR Baseline: 130 Variability: Moderate 6-25 bpm Accelerations: 15x15 Decelerations: None NST Results: Reactive Note Presentation (US performed by Dr. Good. vertex on lower right ) Coding for Presentation w/NST: Completed Exam (reactive NST) NST Note Note: Summer is here for NST. Occasional contractions noted. SVE performed. Cervix closed and 30% effaced/ soft. No presenting part palpable. Dr. Good performed bedside US and confirmed Vertex in lower right side of the uterus and high. Fetus is active. I discussed the recommendation of the midwives and camera machinist MDs at [facility] for induction of labor at this time due to most recent MELL of 24.5 last week and post dates status. I reviewed the risk of prolapsed cord with potential for harm to the baby with the vertex high and excess fluid. I reviewed the possibility of an urgent section if she presents in labor with a malpresentaion. She verbalized understanding of this and she verbalized that she wishes to avoid induction of labor. She was instructed to return for NST on 08/22/22. We will assess presentation at that time and discuss induction of labor on that day or at 41 weeks if she is in agreement. NST Reviewed and Verified by: Federica Corbett
[2022-08-20 16:08] VITALS: BP 105/70; PULSE 116; TEMP 37
== END 2022-08-20 15:57 | disposition home or self-care (01) ==
LOC: BCD 07:53 → OBS 14:28
PROVIDERS: Visit Provider Advanced Practice Midwife
DX: O48.0 Post-term pregnancy (principal); Z3A.40 40 weeks gestation of pregnancy
CPT/HCPCS: 59025

== ENCOUNTER 2022-08-22 07:44 | Outpatient (CLI) | payer BC, SELFPAY ==
[2022-08-22 13:50] VITALS: BP 122/73; PULSE 134
[2022-08-22 14:30] VITALS: BP 122/73; PULSE 134; TEMP 36.4
--- NOTE | 2022-08-22 14:51 | W.OBNST ---
Date of service: 08/22/22 Time of Service: 14:51 NST Evaluation Reason for NST Reasons for Nonstress Test: POSTDATES and POLYHYDRAMNIOS Gestational Age Gestational Age in Weeks and Days: 40 Weeks and 4Days Test and Monitor Explained Test/Monitor Explained: Test Explained, Monitor Explained and Patient Verbalized Understanding Vital Signs Blood Pressure: 122/73 Pulse: 134 Temperature: 97.5 F Urine Results Urine Protein: Negative Urine Ketones: Negative Urine Glucose: Negative Urine Blood: Negative NST Information Date on Monitor: 08/22/22 Time on Monitor: 13:48 Date off Monitor: 08/22/22 Time off Monitor: 14:29 Total Time on Monitor: 41 NST Interventions: PO Hydration Contraction Frequency: Occcasional NST Evaluation Patient States Movement: Present FHR Baseline: 135 Variability: Moderate 6-25 bpm Accelerations: 15x15 Decelerations: None NST Results: Reactive Note N/A NST Note Note: Kathie is here for NST for polyhydramnios and to confirm position. Reative NST. SVE performed FT/30%/soft/-2. Kathie was asked informed of indications for induction of labor. She declines at this time. Instructed to return 08/24 for NST. Precautions reviewed including return immediately with ROM, bleeding, regular contractions. NST Reviewed and Verified by: Federica Corbett
[2022-08-22 14:55] VITALS: BP 122/73; PULSE 134; TEMP 36.4
== END 2022-08-22 14:34 | disposition home or self-care (01) ==
LOC: BCD 07:46 → OBS 13:44
PROVIDERS: Visit Provider Advanced Practice Midwife
DX: O48.0 Post-term pregnancy (principal); O40.3XX0 Polyhydramnios, third trimester, not applicable or unspecified; Z3A.40 40 weeks gestation of pregnancy
CPT/HCPCS: 59025

== ENCOUNTER 2022-08-24 12:01 | Outpatient (CLI) | payer BC, SELFPAY ==
[2022-08-24 13:57] VITALS: BP 121/75; PULSE 120; TEMP 36.9
--- NOTE | 2022-08-24 14:37 | W.POCUS ---
Pocus Exam Limited OB Exam DATE OF EXAM:: 08/24/22 TIME OF EXAM:: 14:37 PROVIDER THAT PERFORMED THE STUDY: Natividad Pitts IS THIS A REPEAT EXAM DURING THIS ENCOUNTER: No Type of Exam: Pelvic OB Trans Abdominal REASON FOR EXAM: other indication: postdates, hx borderline polyhydramnios VISUALIZED STRUCTURES: Other structure: MELL is 14.9, cephalic presentation, posterior placenta, FHT 150 PERTINENT FINDINGS/IMPRESSION: cardiac activity Exam Complete.
--- NOTE | 2022-08-24 14:39 | W.OBNST ---
Date of service: 08/24/22 Time of Service: 14:43 NST Evaluation Reason for NST Reasons for Nonstress Test: POSTDATES Gestational Age Gestational Age in Weeks and Days: 40 Weeks and 6Days Test and Monitor Explained Test/Monitor Explained: Test Explained and Monitor Explained Vital Signs Blood Pressure: 121/75 Pulse: 120 Temperature: 98.4 F Urine Results Urine Protein: Positive Urine Ketones: Negative Urine Glucose: Negative Urine Blood: Negative NST Information Time on Monitor: 13:50 Date off Monitor: 08/24/22 Time off Monitor: 14:20 NST Interventions: PO Hydration NST Evaluation Patient States Movement: Present FHR Baseline: 135 Variability: Moderate 6-25 bpm Accelerations: 15x15 Decelerations: None NST Results: Reactive Note MELL Indication: Polyhydraminos and Other (postdates, hx borderline polyhydramnios) Largest Vertical Pocket: 4.9 Total MELL: 14.9 Other Pertinent Findings: Heart Rate, Presentation (cephalic, ROP) and Placental Location (posterior) Coding for MELL w/NST: Completed Exam NST Note Note: Pt to be seen by Colleen Corbett CNM for discussion of induction of labor for postdates indication, polyhydramnios has resolved position is ROP NST Reviewed and Verified by: Natividad Pitts
[2022-08-24 14:40] VITALS: BP 121/75; PULSE 120; TEMP 36.9
--- NOTE | 2022-08-24 15:16 | W.OBNST ---
Date of service: 08/24/22 Time of Service: 15:17 NST Evaluation Reason for NST Reasons for Nonstress Test: POSTDATES Gestational Age Gestational Age in Weeks and Days: 40 Weeks and 6Days Test and Monitor Explained Test/Monitor Explained: Test Explained and Monitor Explained Vital Signs Blood Pressure: 121/75 Pulse: 120 Temperature: 98.4 F Urine Results Urine Protein: Positive Urine Ketones: Negative Urine Glucose: Negative Urine Blood: Negative NST Information Date on Monitor: 08/24/22 Time on Monitor: 13:50 Date off Monitor: 08/24/22 Time off Monitor: 14:20 Total Time on Monitor: 30 NST Interventions: PO Hydration NST Evaluation Patient States Movement: Present FHR Baseline: 135 Variability: Moderate 6-25 bpm Accelerations: 15x15 Decelerations: None NST Results: Reactive Note NST Note Note: Summer is here for NST due to history of polyhydramnios. MELL confirmed by POCUS today performed by Anuradha goodson. MELL 14.9.
== END 2022-08-24 15:00 | disposition home or self-care (01) ==
LOC: BCD 12:02 → OBS 13:56
PROVIDERS: Visit Provider Advanced Practice Midwife
DX: O48.0 Post-term pregnancy (principal); Z3A.40 40 weeks gestation of pregnancy; O40.3XX0 Polyhydramnios, third trimester, not applicable or unspecified
CPT/HCPCS: 59025

== ENCOUNTER 2022-08-26 01:33 | Outpatient (RCR) | payer BC, SELFPAY ==
[2022-08-05] MEDS: IRON SUCROSE COMPLEX 200 MG in Normal Saline 100 ML 440 MG IVPB (14:23)
[2022-08-05] MEDS: Normal Saline Flush 10 ML SYR IVP (14:24)
[2022-08-12] MEDS: Normal Saline Flush 10 ML SYR IVP (14:09)
[2022-08-12 14:18] LABS: HGB 9.9 g/dL (11.2-15.7)
[2022-08-12] MEDS: IRON SUCROSE COMPLEX 200 MG in Normal Saline 100 ML 440 MG IVPB (14:33)
[2022-08-19 14:48] LABS: HGB 10.3 g/dL (11.2-15.7)
[2022-08-19] MEDS: IRON SUCROSE COMPLEX 200 MG in Normal Saline 100 ML 440 MG IVPB (15:03)
[2022-08-19] MEDS: Normal Saline Flush 10 ML SYR IVP (15:03)
[2022-08-26 14:50] LABS: HGB 10.7 g/dL (11.2-15.7)
[2022-08-26] MEDS: Normal Saline Flush 10 ML SYR IVP (15:16)
[2022-08-26] MEDS: IRON SUCROSE COMPLEX 200 MG in Normal Saline 100 ML 440 MG IVPB (15:16)
== END 2022-09-01 23:59 | disposition home or self-care (01) ==
LOC: INF 01:33
PROVIDERS: Visit Provider Advanced Practice Midwife
DX: O99.013 Anemia complicating pregnancy, third trimester (principal)
CPT/HCPCS: 36415; 96365; 85018; J1756

== ENCOUNTER 2022-08-26 09:04 | Outpatient (CLI) | payer BC, SELFPAY ==
[2022-08-26 15:56] VITALS: BP 110/70; PULSE 115; TEMP 36.7
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
[2022-08-26 19:05] VITALS: BP 110/70; PULSE 115; TEMP 36.7
== END 2022-08-26 17:24 | disposition home or self-care (01) ==
LOC: BCD 09:05 → OBS 14:14
PROVIDERS: Visit Provider Advanced Practice Midwife
DX: O48.0 Post-term pregnancy (principal); O40.3XX0 Polyhydramnios, third trimester, not applicable or unspecified; Z3A.41 41 weeks gestation of pregnancy
CPT/HCPCS: 59025

== ENCOUNTER 2022-08-27 15:00 | Inpatient (IN) | payer BC, SELFPAY ==
[2022-08-27 16:02] VITALS: BP 110/54; PULSE 117; RESP 20; TEMP 36.6
[2022-08-27 16:04] VITALS: BP 110/64; PULSE 117
[2022-08-27 16:07] LABS: HCT 33.6 % (36.0-46.0); HGB 10.5 g/dL (11.2-15.7); MCH 26.3 pg (27.0-33.0); MCHC 31.3 % (32.0-36.0); MCV 84 fL (80-95); MPV 9.6 fL (8.0-11.0); Platelet Count 266 10^3/uL (130-400); RBC 3.99 10^6/uL (3.93-5.22); RDW 24.9 % (11.7-14.6); RDW-SD 74.2 fL; WBC 19.26 10^3/uL (4.4-10.8)
[2022-08-27 16:08] VITALS: TEMP 36.6
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
[2022-08-27 17:11] LABS: Source Nasal/Nares
[2022-08-27] MEDS: miSOPROStol 25 MCG TAB PO ×2 (17:23→21:29)
[2022-08-27 17:45] LABS: COVID-19 PCR Negative (Negative)
--- NOTE | 2022-08-27 18:10 | ANES.PREOP_ITS ---
General Info Date of Service Date Performed: 08/27/22 Height: 4 ft 11 in Weight: 68.039 kg Body Mass Index (BMI): 30.2 Meds Allergies and Home Medications Allergies Allergy/AdvReac Type Severity Reaction Status Date / Time amoxicillin AdvReac Intermediate Verified 08/12/22 15:51 apple AdvReac Intermediate Verified 08/12/22 15:51 kiwi AdvReac Severe Other (See Uncoded 08/27/22 17:29 Comment) Home Medication Medication Instructions Recorded prenat.vits,ying,yly-entl-xwkpt 1 tab PO DAILY 07/08/22 ferrous sulfate 325 mg (65 mg 325 mg PO DAILY #90 tabs 07/13/22 iron) tablet (Feosol) valacyclovir 500 mg tablet 500 mg PO BID #45 tabs 07/29/22 (Valtrex) Current Visit Medications: Current Medications Generic Name Dose Route Start Last Admin Trade Name Freq PRN Reason Stop Dose Admin Ringer's Solution 1,000 mls @ 200 mls/hr 08/27/22 15:30 IV INFUSION ROBERT Sodium Chloride 500 mls @ 0 mls/hr 08/27/22 15:29 Saline 500ml Bag IV PRN PRN As Directed IV Miscellaneous Supplies 1 each 08/27/22 15:30 Iv Access IV DIRECTED [facility] Misoprostol 25 mcg 08/27/22 16:00 08/27/22 17:23 Misoprostol 25 Mcg Tab PO 25 mcg Q4H ROBERT Administration Sodium Chloride 0 ml 08/27/22 15:29 Normal Saline Flush 10 Ml Syr IVP PRN PRN Terbutaline Sulfate 0.25 mg 08/27/22 15:29 Terbutaline 1 Mg/Ml Vial SC PRN PRN Valacyclovir HCl 500 mg 08/27/22 20:00 Valacyclovir 500 Mg Tab PO BID ROBERT Zolpidem Tartrate 10 mg 08/27/22 21:00 Zolpidem 5 Mg Tab PO 08/28/22 06:00 2100 [facility] PFS Active Problems Active Problems: Problem Status Onset Code Encounter for induction of labor Z34.90 Polyhydramnios affecting in third trimester O40.3XX0 Genital warts due to HPV (human papillomavirus) A63.0 Susceptible to varicella (non-immune), currently O09.899, Z28.39 Rubella non-immune status, antepartum O09.899, Z28.39 Anemia affecting first O99.019 COVID-19 virus infection U07.1 Carrier of spinal muscular atrophy Z14.8 History of herpes genitalis Z86.19 Z34.90 Medical History Medical History Chronic tachycardia Family history of autism 1 siblings Family history of genetic disorder SMA, 2 family members maternal Former tobacco use Surgical History Surgical History (Updated 07/29/22 @ 14:30 by Natividad Pitts) History of surgery on arm x2 History of surgery on upper extremity Tobacco Smoking/Tobacco Use Status: Former Tobacco Use Alcohol Alcohol Intake: never Substance Use Substance use: Never Substance use type: does not use Prental History History 3 Para 0 Hx # Term Pregnancies 0 Multiple births 0 Hx # Pregnancies 0 Ectopic pregnancies 0 AB induced 0 Hx Number of Living Children 0 AB spontaneous 2 Vital Signs and Lab Results Vital Signs Most Recent Vital Signs in EMR: Most Recent Vital Signs Temp Pulse Resp BP 36.6 C 117 H 20 110/64 08/27/22 16:08 08/27/22 16:04 08/27/22 16:02 08/27/22 16:04 Lab Results 08/27/22 15:56 Blood Type / Crossmatch: Patient ABO/Rh O Positive 08/27/22 Antibody Screen NEGATIVE 08/27/22 Complete Blood Count: White Blood Count 19.26 10^3/uL (4.4-10.8) H 08/27/22 15:56 Red Blood Count 3.99 10^6/uL (3.93-5.22) 08/27/22 15:56 Hemoglobin 10.5 g/dL (11.2-15.7) L 08/27/22 15:56 Hematocrit 33.6 % (36.0-46.0) L 08/27/22 15:56 Platelet Count 266 10^3/uL (130-400) 08/27/22 15:56 Complete Metabolic Panel: No Data to Display Liver Function Panel: No Data to Display Coagulation Panel: No Data to Display Cardiac Panel: No Data to Display Arterial Blood Gas: No Data to Display Venous Blood Gas: No Data to Display Pancreas Panel: No Data to Display Thyroid Panel: No Data to Display Infectious Disease: Coronavirus (COVID-19)(PCR) Negative (Negative) 08/27/22 16:55 Coronavirus 2019 Source Nasal/Nares 08/27/22 16:55 Neisseria gonorrhoeae DNA Probe Negative (Negative) 08/04/22 1 0:07 Blood Cultures: No Data to Display Toxicology Panel: No Data to Display Panel: No Data to Display Anesthesia Assessment and Plan Anesthesia History Personal History: No History of Anesthesia Complications Family History: No Family History of Anesthesia Complications Exercise Tolerance Exercise Tolerance: Metabolic Equivalents>4 Pertinent Negatives Pertinent Negatives: No Major Cardiovascular Symptoms or Complaints and No Major Pulmonary Symptoms or Complaints Cardiac & Pulmonary Exam Cardiac Exam: Normal S1/S2 Heart Sounds Pulmonary Exam: Clear Bilateral Breath Sounds Implantable Cardiac Device Does patient have a Pacemaker or an ICD?: No Airway Exam Known Difficult Airway: Yes Mallampati Class: 2 Mouth Opening: Normal (> 3cm) Thyromental Distance: Greater than 3 cm Neck Range of Motion: Full ROM Neck Circumference: Normal Teeth Condition: Normal Dentition ASA Classification ASA Score: ASA 2 Emergency Case?: No NPO Status NPO Status: Full Stomach Status Status: Confirmed Anesthesia Plan Resuscitation Status: Full Code Anesthesia Technique: Spinal Anesthesia Airway Planned: Natural Airway Monitors Used: Standard Monitors
[2022-08-27 18:12] VITALS: BMI 30.2
[2022-08-27 18:20] VITALS: BP 113/74; PULSE 118
[2022-08-27 21:10] VITALS: BP 111/68; PULSE 112; RESP 18; TEMP 36.8
[2022-08-27] MEDS: valACYclovir 500 MG TAB PO (21:29)
[2022-08-27] MEDS: Zolpidem 5 MG TAB 10 MG PO (22:39)
[2022-08-28] VITALS (230 sets, daily range): BP systolic 93–127; BP diastolic 49–75; PULSE 0–166; RESP 16–18; TEMP 36.4–36.8; O2SAT 98–100
[2022-08-28] MEDS: miSOPROStol 25 MCG TAB PO (01:29)
--- NOTE | 2022-08-28 05:38 | NUR.NOTE ---
Nursing Note: Pt asking about epidural and requesting SVE. BRITTANY Corbett notified and approved SVE. SVE . Pt desires to wait for epidural. BRITTANY Corbett notified of SVE. Agreeable to holding 0530 misoprostol and pt come off monitors for shower. Pt desires bath.
--- NOTE | 2022-08-28 06:59 | W.PM.OBNL1 ---
Date of service: 08/28/22 Time of Service: 06:59 Pelvic Exam Dilation: 2 Effacement (%): 80 station: -3 Contractions Monitor Mode: None Contraction Frequency(min): irregular Intensity: Mild Fetus A Monitor: Doppler Heart Rate Baseline: 140 Assessment and Plan Assessment and plan (1) Encounter for induction of labor: Status: Acute Assessment and plan: I plan to resume misoprostol administration when Summer awakes. Will continue to assess progress in labor and provide comfort measures. Anuradha Pitts CNM will be assuming care of Summer at 0800. Objective Abnormal lab results 08/27/22 Range/Units 15:56 WBC 19.26 H (4.4-10.8) 10^3/uL Hgb 10.5 L (11.2-15.7) g/dL Hct 33.6 L (36.0-46.0) % MCH 26.3 L (27.0-33.0) pg MCHC 31.3 L (32.0-36.0) % RDW 24.9 H (11.7-14.6) % Temp Pulse Resp BP 97.8 F 108 H 16 98/56 L 08/28/22 04:46 08/28/22 04:46 08/28/22 04:46 08/28/22 04:46 Laboratory Results WBC 19.26 10^3/uL (4.4-10.8) H 08/27/22 15:56 RBC 3.99 10^6/uL (3.93-5.22) 08/27/22 15:56 Hgb 10.5 g/dL (11.2-15.7) L 08/27/22 15:56 Hct 33.6 % (36.0-46.0) L 08/27/22 15:56 MCV 84 fL (80-95) 08/27/22 15:56 MCH 26.3 pg (27.0-33.0) L 08/27/22 15:56 MCHC 31.3 % (32.0-36.0) L 08/27/22 15:56 RDW 24.9 % (11.7-14.6) H 08/27/22 15:56 Plt Count 266 10^3/uL (130-400) 08/27/22 15:56 MPV 9.6 fL (8.0-11.0) 08/27/22 15:56 COVID-19 Source Nasal/Nares 08/27/22 16:55 SARS-CoV-2 (PCR) Negative (Negative) 08/27/22 16:55 Patient ABO/Rh O Positive 08/27/22 15:56 Antibody Screen NEGATIVE 08/27/22 15:56 Subjective Interval history since last seen: Summer slept well with ambien. She was kept on continuous monitoring from 0130 to 0530 due to decreased variability. Summer requested an epidural at 0500. She was having regular strong contractions. I was paged and I requested a SVe be performed to assess her progress. She was examined by ORACIO Salgado and was found to be 2/80%/-3. I suggested that she be removed from the monitor and try a shower for comfort. Naomi assisted abilio to the tub. I went in to assess her after taking a tub, and she was dozing in her bed. I offered another does of misoprostol to Summer and she requested to take a nap first. Results Hemoglobin/Hematocrit: Hgb 10.5 g/dL (11.2-15.7) L 08/27/22 15:56 Hct 33.6 % (36.0-46.0) L 08/27/22 15:56 Abnormal Lab Findings: Abnormal Labs 08/27/22 15:56 WBC 19.26 H Hgb 10.5 L Hct 33.6 L MCH 26.3 L MCHC 31.3 L RDW 24.9 H
[2022-08-28] MEDS: Lactated Ringers 500 ML IV (08:03)
[2022-08-28] MEDS: FentaNYL/ROPIvacaine 2 mcg/ml and 0.1% 200 ML CADD Cassette EP (08:04)
[2022-08-28] MEDS: Lactated Ringers 1,000 ML 200 ML IV (08:30)
--- NOTE | 2022-08-28 08:48 | ANES.NEUR_ITS ---
Epidural/Spinal Catheter Date Performed: 08/28/22 Procedure Start: 08:02 Procedure Stop: 08:35 Requesting Provider: Federica Corbett Procedure Location: Obstetrics Reason Performed: Labor Epidural Standard Monitors Applied: Blood Pressure, SpO2 and See EMR for corresponding vital signs Patient Position: Sitting Sedation Given (Indicate Dose Given): No Sedation given Patient Mental Status: Awake Sterility: Hand Hygiene, Surgical Cap, Surgical Mask, Sterile Gloves, Sterile Drape/Sheet and Chlorhexidine Procedure Location: L2-L3 Interspace Epidural Needle: Tuohy 18 Gauge Needle Length: 3.5 Inch Needle Approach: Midline Epidural Procedure: Skin Prepped, Sterile Drape Placed, 1% Lidocaine to skin and subcutaneous tissue with 25G needle, Tuohy Needle placed, DANIELLE to Saline Used, Epidural Catheter Placed, Negative Heme, Negative CSF Flow and Tuohy Needle Removed Catheter Placed?: Catheter Placed Test Dose (Indicate Dose Given): 3ml 1.5% Lidocaine with 1:200K Epinephrine Given and Negative Test Dose Loss of Resistance Depth (cm): 7 Catheter depth at skin (cm): 15 Dressing: [place] Dressing Placed, Tegaderm Applied, Mastisol Used and Dressing reinforced with Tape Epidural Provider Bolus (Indicate Dose Given): Total bolus dose given in 3- 5 ml divided doses and Total Ropivacaine 0.1% with Fentanyl 2mcg/ml Given from pump. (ml) Dose:: 10 mL Additives (Indicate Dose Given ): None Infusion Medication: Medication Infusion Began Medication Infusion: Ropivacaine 0.1% with Fentanyl 2mcg/ml Maintenance Infusion Rate (ml/hour): 10 PCEA Bolus Dose (ml): 5 Block Level: N/A Paresthesia: Right Paresthesia Duration: Persistent (First epidural placement, persistent right buttock and hip paresthesia. Catheter withdrawn and removed. Procedure repeated.) Ultrasound: Not Used Number of Attempts (See previous attempts in note section): 2 Procedure Tolerated: No Complications and Patient tolerated well Procedure Outcome: Successful Performed By: Vanessa Hood
[2022-08-28] MEDS: valACYclovir 500 MG TAB PO (08:56)
--- NOTE | 2022-08-28 08:57 | W.PM.OBNL1 ---
Date of service: 08/28/22 Time of Service: 08:57 Pelvic Exam Dilation: 5 (at last CNM exam 0730) Contractions Monitor Mode: External Contraction Frequency(min): irreg q3-5 Intensity: Moderate Fetus A Monitor: External (US) Heart Rate Baseline: 150 Presentation: Cephalic Variability: Moderate (6-25 BPM) Categories: Category I Accelerations: 15 X 15 Decelerations: Early Amniotic Membrane Status: Intact Assessment and Plan Assessment and plan (1) Encounter for induction of labor: Status: Acute Assessment and plan: A: On shift note 21 yo G1 @ 41+3 wks GBS neg, category 1 tracing IOL via cervical ripening for postdates Increased risk for SD & PPH d/t LGA fetus & IOL Epidural anesthesia effective @ 5 cm dilation P: Will encourage rest while assessing uterine activity Recheck cvx in approximately 1 hr Consider AROM, consider pitocin augmentation Plan of care reviewed with pt who expresses understanding and consent Dr. Bernardo whittington and consulting Objective Vital Signs Reviewed: Yes Objective Narrative Objective Narrative: Pt resting after epidural was placed Appears sleepy, calm, cooperative Pt's mother at bedside providing support Afebrile, normotensive Category 1 tracing, intact membranes, VE deferred Subjective Interval history since last seen: Epidural is increasingly effective, feeling sleepy, can still feel contractions but they are bearable now.
--- NOTE | 2022-08-28 10:02 | PLAC_PTH ---
PATIENT: Kathie Mercer LOC: OBS U#:[id number] AGE/SX: 21/F ROOM: OBS.301 RE08/27/[address]: Federica Corbett : 2000 BED: A DIS: 08/31/2022 SPEC #: [id number] RECD: 08/31/22 13:03 STATUS: ASIYA REQ #: [id number] DORITA: 08/28/22 10:[address]: Federica Corbett DEPT: Surgical Specimen RECD BY: Luann Shabazz ENTERED: 08/31/22 13:03 SP TYPE: PLAC OTHR DR: Unknown,Unknown Tissues: 1 - PLACENTA (3RD TRIMESTER) Procedures: GROSS AND MICRO LEVEL 5 Comments: [id number]
--- NOTE | 2022-08-28 10:22 | W.PM.OBNL1 ---
Date of service: 08/28/22 Time of Service: 10:22 Informed Consent Informed Consent: Other (Discussed AROM with pt prior to VE, pt declined AROM I want the bag to break naturally) Pelvic Exam Dilation: 7 Effacement (%): 80 station: -3 Contractions Monitor Mode: External Contraction Frequency(min): irregular, Q2-4 Fetus A Monitor: External (US) Heart Rate Baseline: 150 Variability: Moderate (6-25 BPM) Categories: Category I Accelerations: 15 X 15 Decelerations: Early Amniotic Membrane Status: Ruptured Rupture Method: Artifical Amniotic Fluid: Meconium Amount: unintentional AROM during vaginal exam, large amt dark brown Date of Membrane Rupture: 08/28/22 Time of Membrane Rupture: 10:24 Assessment and Plan Assessment and plan (1) Encounter for induction of labor: Status: Acute Assessment and plan: A: Active labor with dilation progressed to 7 cm Unintentional AROM, meconium fluid Category 1 tracing, effective anesthesia P: Awaiting descent through pelvic inlet Maternal positioning to facilitate rotation & descent Consider pitocin augmentation if indicated Dr. Chang aware of pt status Objective Vital Signs Reviewed: Yes Objective Narrative Objective Narrative: AROM occurred unintentionally during vaginal exam Meconium appears dark brown thin, large amount Category 1 tracing persists Subjective Interval history since last seen: Comfortable, feeling hungry, eating soup
--- NOTE | 2022-08-28 12:12 | W.PM.OBNL1 ---
Date of service: 08/28/22 Time of Service: 12:12 Informed Consent Informed Consent: Augmentation of Labor and Risk,Benefits,Alternatives Discussed Pelvic Exam Dilation: 7 Effacement (%): 80 station: -4 Contractions Monitor Mode: External Contraction Frequency(min): q3-5 Intensity: Moderate Fetus A Monitor: External (US) Heart Rate Baseline: 150 Variability: Moderate (6-25 BPM) Categories: Category I Accelerations: 15 X 15 Decelerations: Early Amniotic Membrane Status: Ruptured Assessment Note: question of an occasional subtle late decel, nonrecurrent Assessment and Plan Assessment and plan (1) Encounter for induction of labor: Status: Acute Assessment and plan: A: No cervical change or descent over 2 hr period since ROM Inadequate contraction pattern P: Will insert salgado catheter, change maternal position Initiate pitocin augmentation Objective Vital Signs Reviewed: Yes Subjective Interval history since last seen: Napped briefly, has been in [facility], ready to change to RLP
[2022-08-28] MEDS: Oxytocin/Normal Saline 30 UNIT/500 ML BAG 2 UNITS IV (12:22)
[2022-08-28] MEDS: Lactated Ringers 1,000 ML 125 ML IV (12:22)
--- NOTE | 2022-08-28 16:45 | W.PM.OBNL1 ---
Date of service: 08/28/22 Time of Service: 16:45 Informed Consent Informed Consent: Augmentation of Labor and Risk,Benefits,Alternatives Discussed Pelvic Exam Dilation: 8 Effacement (%): 90 station: -3 Contractions Monitor Mode: External ([place]) Contraction Frequency(min): q2-4 Contraction Duration(sec): 60-70 Intensity: Moderate/Strong Fetus A Monitor: External (US) Heart Rate Baseline: 150 Presentation: Cephalic Variability: Moderate (6-25 BPM) Categories: Category II Accelerations: Present Decelerations: Early and Variable Recurrence: Recurrent Amniotic Membrane Status: Ruptured Amniotic Fluid: Meconium Assessment and Plan Assessment and plan (1) Encounter for induction of labor: Status: Acute Assessment and plan: A: Progressed to 8/90%, vtx not descending @ -3 Category 2 tracing to due recurrent variable decels, moderate variability persists Pitocin at 12 mu/min P: Reviewed tracing and pt status with Dr. Chang Pt wishes to continue maneuvers to encourage descent Will hold pitocin at current level, reassess for route of delivery within an hour OR team aware of pt status Objective Vital Signs Reviewed: Yes Subjective Interval history since last seen: Can feel contractions because of tightness and pressure in her abdomen but feels comfortable overall, right leg more numb then left.
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
[2022-08-28] MEDS: ceFAZolin 2 GM/50 ML BAG IVPB (21:50)
--- NOTE | 2022-08-28 23:09 | W.PM.OBCSECT ---
Date of service: 08/28/22 Time of Service: 23:10 Operative Note Operative Note Delivery Method: Unscheduled STAT: No and Primary NTSV>37 Weeks: Yes DATE OF PROCEDURE: 08/28/22 PRE-OP DIAGNOSES: at 41-3/7 weeks. Failed induction. Arrest of labor. Thick meco macrosomia, persistent occiput posterior PROCEDURE: Primary low transverse section SURGEON: Lynne Chang Monument Carver: Natividad Pitts Anesthesia: local and spinal Estimated blood loss (mL): 500 Pathology: other (Placenta for exam, cord blood sample, cord blood gases) Complications: None Patient was transported to: floor Patient's condition: stable Indications: Labor arrest at 8 cm. Failed induction. Suspect macrosomia. Findings: Normal-appearing fallopian tubes, ovaries, uterus with relatively thin lower uterine segment. Delivery of a viable female weighing 10 pounds with Apgars of 8 and 9. Moderate distention of the small bowel. Procedure Description: After full informed consent was obtained, patient was taken the operating suite. She was placed in the seated position and her previously inserted epidural catheter was removed. Spinal anesthesia was administered, tested and found to be adequate. She was placed in the dorsal supine position with a leftward tilt. Paul catheter had been previously inserted. She received pneumatic compression stockings for DVT prophylaxis. She received 2 g of Ancef, and 500 mg of Zithromax for surgical site infection prophylaxis. She had a vaginal preparation performed. Exam under anesthesia revealed a vertex in the occiput posterior position, persistently 8 cm. At this point, quarter percent Marcaine was used to infiltrate the surgical site which would be a Pfannenstiel skin incision. Pfannenstiel skin incision was made and carried down to the underlying fascia which was nicked in the midline and extended laterally. The rectus muscles were identified split in the midline and the peritoneum identified tented up and entered sharply. On entry into the abdomen there was noted to be multiple loops of small bowel which were somewhat distended. These were packed away with moist laparotomy sponge. A bladder blade was inserted and the vesicouterine peritoneum identified tented up and entered sharply. The bladder flap was then created and the bladder blade reinserted. A low transverse uterine incision was made with a scalpel and extended bluntly laterally. There was noted to be persistent thick meconium stained fluid. The nuchal area was present at the site of the incision. With gentle upward pressure at the vertex was delivered in the occiput posterior position through the uterine incision. There was no evidence of nuchal cord and the shoulders followed with ease. Three-vessel cord was noted clamped x2 and cut and the infant was handed off to the waiting micro paleontologist. At this point Cord blood gas segment was obtained. Cord blood samples were obtained and the uterus was massaged for manual expression of the placenta. At this point the uterus was exteriorized and cleared of all clot and debris. There is noted to be a laceration of one of the uterine vessels on the right side which was clamped. The uterine incision was then closed using 0 Monocryl suture with the first layer being running locked. Special attention was turned to the right aspect of the uterine incision and the uterine vessel area was oversewn with 0 Monocryl suture. A second layer, imbricating was closed at the uterine incision with 0 Monocryl suture. At this point the uterus was returned to the abdomen and the uterine incision inspected from end and and noted to be hemostatic. Moist laparotomy sponge that had been previously inserted was removed. Abdomen was then irrigated with copious amounts of normal saline and again the uterine SPECT incision inspected and found to be hemostatic. At this point, with gentle retraction of the small bowel which was somewhat dilated the fascial incision was closed using 0 Vicryl suture. Subcutaneous tissue was irrigated with copious amounts of normal saline subcu space was reapproximated with 3-0 Vicryl in a simple interrupted fashion. The skin edge was then reapproximated with 4-0 undyed Monocryl in a subcuticular fashion. Steri-Strips and sterile dressings were placed. Uterus was noted to be firm and 2 cm below the umbilicus. The upper abdomen was somewhat distended due to bowel gas. Paul catheter that had been previously inserted was noted to be draining concentrated though yellow urine. Upon the completion of the procedure patient was taken back to the center for recovery. Complications: None apparent Findings: Normal-appearing uterus, fallopian tubes. Delivery of a viable female which was macrosomic from an OP position at 10 pounds 0 ounces. Fluids: Crystalloid per anesthesia EBL: 500 mL Pathology: Placenta for examination, cord blood gas, cord blood sample. Gestational Age in Weeks/Days: 41 Weeks and 3 Days Gender: Female weight: 9 lb 15.967 oz
[2022-08-29] VITALS (12 sets, daily range): BP systolic 91–116; BP diastolic 54–69; PULSE 71–124; RESP 16–18; TEMP 36.6–37.3; O2SAT 97–99
[2022-08-29] MEDS: Ketorolac 30 MG/ML VIAL IVP ×3 (03:59→17:41)
[2022-08-29 06:26] LABS: Abs Immature Grans 0.36 10^3/uL (0.0-0.06); Absolute Basophil Count 0.12 10^3/uL (0.0-0.2); Absolute Eosinophil Count 0.03 10^3/uL (0.0-0.7); Basophils % 0.4; Eosinophils % 0.1; HCT 25.5 % (36.0-46.0); Immature Grans % 1.2; Lymphocytes % 4.3; MCH 26.6 pg (27.0-33.0); MCHC 31.4 % (32.0-36.0); MCV 85 fL (80-95); MPV 9.9 fL (8.0-11.0); Monocytes % 4.6; Neutrophils % 89.4; Platelet Count 232 10^3/uL (130-400); RBC 3.01 10^6/uL (3.93-5.22); RDW 25.5 % (11.7-14.6); RDW-SD 76.2 fL
[2022-08-29 06:35] LABS: Absolute Lymphocyte Count 1.33 10^3/uL (1.2-3.4); Absolute Monocyte Count 1.43 10^3/uL (0.1-0.8); Absolute Neutrophil Count 27.74 10^3/uL (1.2-6.7); WBC 31.03 10^3/uL (4.4-10.8)
[2022-08-29 07:02] LABS: Anisocytosis 2+; Diff Comment Agrees w/ Instrument; Hypochromasia 2+; Poikilocytes 1+
--- NOTE | 2022-08-29 09:15 | OBPPV_ITS ---
Date of service: 08/29/22 Time of Service: 09:15 Assessment and Plan Assessment and plan (1) Status post primary low transverse section: Status: Acute (2) Arrested labor: Status: Acute (3) Elevated WBC count: Status: Acute Subjective Subjective Interval history: Patient seen and examined this morning. Overall doing well. She is passing gas. Has been up. She is not lightheaded or dizzy. She denies fevers or chills. Patient's Mood: good [place] baby status: Doing well, Nursing well and Strong Bonding Observed feeding status: Exclusively breast feeding Exam Physical Exam Vital signs: Temp Pulse Resp BP Pulse Ox 97.8 F 111 H 18 91/54 L 99 08/29/22 07:32 08/29/22 07:32 08/29/22 06:25 08/29/22 07:32 08/29/22 07:32 Vital Signs Reviewed: Yes Notable Details: Low-grade temperature at 99 through the evening. Narrative: Decreasing tachycardia. Appropriate urine output. Currently afebrile Constitutional Constitutional: no acute distress HEENT Exam HEENT Exam: Normal Neck Exam Neck Exam: Normal Respiratory Exam Respiratory Exam: Normal Cardiovascular Exam Cardiovascular Exam: Normal Abdominal Exam Comments: Soft, nontender, moderate distention similar to immediate postoperative state. Active bowel sounds. Fundal Exam Fundus: Below Umbilicus and Firm Extremities Exam Extremity Exam: Normal; negative Calf Tenderness Skin Exam Skin Exam: Normal Psychiatric Exam Psychiatric Exam: Normal Results Hemoglobin/Hematocrit: Hgb 8.0 g/dL (11.2-15.7) L D 08/29/22 05:50 Hct 25.5 % (36.0-46.0) L 08/29/22 05:50 Abnormal Lab Findings: Abnormal Labs 08/27/22 08/29/22 15:56 05:50 WBC 19.26 H 31.03 H* RBC 3.01 L Hgb 10.5 L 8.0 L D Hct 33.6 L 25.5 L MCH 26.3 L 26.6 L MCHC 31.3 L 31.4 L RDW 24.9 H 25.5 H Absolute Neutrophils 27.74 H Absolute Monocytes 1.43 H
--- NOTE | 2022-08-29 11:16 | W.ANESPOSTOP ---
Postoperative Evaluation Date, Time and Location Date Performed: 08/29/22 Time Performed: 11:16 Patient Location: Obstetrics Vital Signs Most Recent Imported Vital Signs: Most Recent Vital Signs Temp Pulse Resp BP Pulse Ox 36.6 C 111 H 18 91/54 L 99 08/29/22 07:32 08/29/22 07:32 08/29/22 06:25 08/29/22 07:32 08/29/22 07:32 Pain Score Most Recent Pain Score: Most Recent Pain Score Pain Level [Bilateral Abdomen] 0 08/29/22 02:15 Pain Level 0 08/27/22 16:08 Assessment Mental Status: Awake (Alert & Oriented to Patient Baseline) Airway and Respiratory Function: Patent airway with normal (patient baseline) respiratory exam Cardiovascular Function: Hemodynamically Stable Hydration Status: Adequately Hydrated Nausea & Vomiting: No Nausea or Vomiting Pain: Pt. Denies Any Pain Peripheral Nerve Block: Patient did not receive a nerve block Postoperative Comments:: Patient doing well, F/C still in place. Epidural removed last night in C/S with tip intact. CMS intact bilaterally in lower extremities. Patient questions answered and left in the presence of family.
[2022-08-29] MEDS: Normal Saline Flush 10 ML SYR IVP (12:08)
[2022-08-29 18:42] LABS: Abs Immature Grans 0.43 10^3/uL (0.0-0.06); HCT 25.4 % (36.0-46.0); HGB 7.8 g/dL (11.2-15.7); MCH 26.5 pg (27.0-33.0); MCHC 30.7 % (32.0-36.0); MCV 86 fL (80-95); MPV 9.9 fL (8.0-11.0); Platelet Count 227 10^3/uL (130-400); RBC 2.94 10^6/uL (3.93-5.22); RDW 25.4 % (11.7-14.6); RDW-SD 78.3 fL
[2022-08-29 18:56] LABS: WBC 28.46 10^3/uL (4.4-10.8)
[2022-08-29 18:57] LABS: Absolute Lymphocyte Count 1.42 10^3/uL (1.2-3.4); Absolute Monocyte Count 0.57 10^3/uL (0.1-0.8); Absolute Neutrophil Count 26.47 10^3/uL (1.2-6.7); Anisocytosis 2+; Bands % 7; Diff Comment Manual Differential; Polychromasia Present
[2022-08-29] MEDS: Ibuprofen 600 MG TAB PO (19:33)
[2022-08-29] MEDS: oxyCODONE 5 mg/Acetaminophen 325 mg TAB PO (19:34)
[2022-08-29] MEDS: Docusate Sodium 100 MG CAP PO (19:34)
[2022-08-30] MEDS: oxyCODONE 5 mg/Acetaminophen 325 mg TAB PO ×5 (00:14→23:52)
[2022-08-30] MEDS: Ibuprofen 600 MG TAB PO ×3 (02:40→22:00)
[2022-08-30 03:16] VITALS: BP 94/52; PULSE 102; RESP 16; TEMP 36.4; O2SAT 97
--- NOTE | 2022-08-30 07:36 | W.PM.OBPNV1 ---
Date of service: 09/01/22 Time of Service: 07:37 Assessment and Plan Assessment and plan (1) Status post primary low transverse section: Status: Acute Assessment and plan: Patient is postoperative day #2 status post primary low-transverse section. Mild anemia which is asymptomatic and stable. Ambulating. Tolerating regular diet. Stable vital signs. Anticipate discharge home tomorrow. All questions answered. (2) Elevated WBC count: Status: Acute Assessment and plan: Improvement, and afebrile (3) Anemia: Status: Chronic Assessment and plan: Stable Subjective Subjective Interval history: Patient seen and examined this morning. Ambulatory. Stable vital signs. Hemoglobin with slight decrease yesterday from 8-7.8 though stable. No evidence of active bleeding. Improving digestion of status with less distention active bowel sounds today. Patient's Mood: Appropriate feeding status: Exclusively breast feeding Exam Physical Exam Vital signs: Temp Pulse Resp BP Pulse Ox 97.5 F L 102 H 16 94/52 L 97 08/30/22 03:16 08/30/22 03:16 08/30/22 03:16 08/30/22 03:16 08/30/22 03:16 Constitutional Constitutional: no acute distress Neck Exam Neck Exam: Normal Respiratory Exam Respiratory Exam: Normal Cardiovascular Exam Cardiovascular Exam: Normal Abdominal Exam Comments: Soft, good bowel sounds. Mild distention as consistent with exam at time of delivery. No evidence of ileus. Incision dressed, dry, intact. Fundal Exam Fundus: Below Umbilicus and Firm Extremities Exam Extremity Exam: Normal; negative Edema Neurological Exam Neurological Exam: Normal Psychiatric Exam Psychiatric Exam: Normal Results Hemoglobin/Hematocrit: Hgb 7.8 g/dL (11.2-15.7) L 08/29/22 18:20 Hct 25.4 % (36.0-46.0) L 08/29/22 18:20 Abnormal Lab Findings: Abnormal Labs 08/27/22 08/29/22 08/29/22 15:56 05:50 18:20 WBC 19.26 H 31.03 H* 28.46 H* RBC 3.01 L 2.94 L Hgb 10.5 L 8.0 L D 7.8 L Hct 33.6 L 25.5 L 25.4 L MCH 26.3 L 26.6 L 26.5 L MCHC 31.3 L 31.4 L 30.7 L RDW 24.9 H 25.5 H 25.4 H Absolute Neutrophils 27.74 H 26.47 H Absolute Monocytes 1.43 H
[2022-08-30 07:45] VITALS: BP 102/68; PULSE 99; RESP 18; TEMP 36.6; O2SAT 98
[2022-08-30] MEDS: Docusate Sodium 100 MG CAP PO ×2 (12:23→19:45)
[2022-08-30 12:30] VITALS: BP 105/70; PULSE 112; RESP 18; TEMP 36.5; O2SAT 98
[2022-08-30 16:37] VITALS: BP 112/65; PULSE 105; RESP 18; TEMP 36.7; O2SAT 98
[2022-08-30 19:36] VITALS: BP 105/72; PULSE 108; RESP 16; TEMP 36.9; O2SAT 98
[2022-08-30] MEDS: Acetaminophen 325 MG TAB 650 MG PO (19:45)
[2022-08-30 23:40] VITALS: BP 94/56; PULSE 105; TEMP 36.9
[2022-08-31 03:30] VITALS: BP 102/64; PULSE 100; TEMP 36.9
[2022-08-31] MEDS: oxyCODONE 5 mg/Acetaminophen 325 mg TAB PO ×2 (04:16→13:29)
[2022-08-31 08:00] VITALS: BP 110/73; PULSE 96; RESP 16; TEMP 36.5
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
[2022-08-31] MEDS: Ibuprofen 600 MG TAB PO (08:23)
[2022-08-31] MEDS: Docusate Sodium 100 MG CAP PO (08:23)
[2022-08-31] MEDS: Acetaminophen 325 MG TAB 650 MG PO ×2 (08:23→12:37)
--- NOTE | 2022-08-31 10:39 | W.PM.PROGNOT ---
Date of Service Date of service: 08/31/22 Time of Service: 10:39 Assessment and Plan Assessment and plan (1) Status post primary low transverse section: Status: Acute Assessment and plan: Postoperative day #3 status post primary low-transverse section for arrest of labor. Discharge home today. Continue iron and vitamins. Prescriptions for ibuprofen, Percocet, Colace sent to the pharmacy. Follow-up in the office in 2 and 6 weeks. All questions answered. (2) Anemia: Status: Chronic Subjective Subjective Interval history since last seen: Patient seen and examined this morning. Doing well. Slept well this morning. Breast-feeding without difficulty. Overall feels well and ready to go home. Tolerating regular diet and oral pain medication with stable vital signs. Exam Narrative Exam Narrative: Alert and oriented. No acute distress Const Nutritional Appearance: average body habitus HENMT Head: normal to inspection Eyes General: appearance normal, both eyes and all related structures Neck Neck: normal visual inspection, supple and no anterior neck swelling Resp Effort & Inspection: normal respiratory effort Auscultation: clear to auscultation bilaterally Cardio Rate: regular rate GI Inspection: normal to inspection, distended (Mild distention, improved.) and incision (Clean dry intact. Steri-Strips in place) Skin General skin exam: no rashes or lesions noted Extrem General: normal to inspection, no clubbing, cyanosis or edema and no calf tenderness Psych Mental Status: mental status grossly normal Speech and Movement: speech and movement normal Mood: congruent mood Affect: normal affect Attitude: cooperative Thought Process: normal Thought Content: normal Insight: insight good Judgment: judgment good Objective Last Vital Signs Temp 97.7 F 08/31/22 08:00 Pulse 96 H 08/31/22 08:00 Resp 16 08/31/22 08:00 BP 110/73 08/31/22 08:00 Pulse Ox 98 08/30/22 19:36 Time Spent with Patient Time Spent with Patient: <25 minutes Time was spent: preparing to see the patient(eg.review tests), ordering medications,tests, procedures, referring, communicating with other health progressive care manager, indepentently interpreting results and counseling the patient
[2022-08-31] MEDS: Varicella Virus Vaccine (Live) 0.5 ML SC (10:48)
[2022-08-31] MEDS: Measles, Mumps, & Rubella Vaccine 0.5 ML VIAL SC (10:49)
[2022-08-31 12:00] VITALS: BP 111/72; PULSE 105; TEMP 36.5
== END 2022-08-31 16:00 | disposition home or self-care (01) | DRG 787 ==
PROVIDERS: Obstetrics & Gynecology; Admitting Provider Advanced Practice Midwife; Visit Provider Advanced Practice Midwife
PROC: 10D00Z1 Extraction of Products of Conception, Low, Open Approach (ICD-10-PCS; CPT 59514; principal; 2022-08-28 21:30)
DX: O48.0 Post-term pregnancy (principal); O86.4 Pyrexia of unknown origin following delivery; O98.32 Other infections with a predominantly sexual mode of transmission complicating childbirth; Z37.0 Single live birth; Z3A.41 41 weeks gestation of pregnancy; O62.1 Secondary uterine inertia; O77.0 Labor and delivery complicated by meconium in amniotic fluid; O61.0 Failed medical induction of labor; O99.02 Anemia complicating childbirth; D64.9 Anemia, unspecified; A63.0 Anogenital (venereal) warts
CPT/HCPCS: 59514; 36415; 85027; 86850; 86900; 86901; 87635; 85025; 87081; 88307; J0131; J0456; J0690; J1885; J2370; J2405; J3010; J3490

== ENCOUNTER 2023-04-07 16:06 | Outpatient (REF) | payer BC, SELFPAY ==
--- NOTE | 2023-04-07 15:30 | PAPFT_PTH ---
PATIENT: Kathie Mercer LOC: [facility] U#:[id number] AGE/SX: 22/F ROOM: RE04/07/[address]: Lynne Chang DO : 2000 BED: DIS: 04/07/2023 SPEC #: [id number] RECD: 04/07/23 18:11 STATUS: ASIYA REQ #: [id number] DORITA: 04/07/23 15:[address]: Lynne Chang DEPT: [facility] Cytology RECD BY: Luann Shabazz Tissues: 1 - CX/ENDOCX FOR PAP SMEARS Procedures: PAP THIN PREP/UVM Screening HPV DNA PROBE Comments: [id number] (CHLAMYDIA/GC)
[2023-04-08 16:56] LABS: Chlamydia Result Negative (Negative); GC Result Negative (Negative)
== END 2023-04-07 16:07 | disposition home or self-care (01) ==
LOC: LBN 16:06
PROVIDERS: Visit Provider Obstetrics & Gynecology
DX: Z11.3 Encounter for screening for infections with a predominantly sexual mode of transmission (principal); Z12.4 Encounter for screening for malignant neoplasm of cervix; Z11.51 Encounter for screening for human papillomavirus (HPV)
CPT/HCPCS: 87491; 87591; 88142; 87624